=== PATIENT | male | born 1990 | race Caucasian/White ===

== ENCOUNTER 2019-06-07 17:46 | Emergency (ER) | payer MEDICAID ==
[~2019-06-07] VITALS: Ht 190.5 cm; Wt 94.0 kg
[2019-06-07 18:55] LABS: BASOPHILS % (AUTO) 0.5 % (0-1); EOSINOPHILS # (AUTO) 0.2 X10'3 (0-0.9); EOSINOPHILS % (AUTO) 2.7 % (0-6); HEMATOCRIT 44.8 % (42.0-52.0); HEMOGLOBIN 15.4 g/dl (14.0-17.9); LYMPHOCYTES # (AUTO) 1.7 X10'3 (1.1-4.8); MEAN CORPUSCULAR HEMOGLOBIN 30.7 PG (27.0-31.0); MEAN CORPUSCULAR HGB CONC 34.4 g/dL (33.0-36.5); MEAN CORPUSCULAR VOLUME 89.1 FL (78-98); MEAN PLATELET VOLUME 9.7 FL (7.4-10.4); MONOCYTES # (AUTO) 0.6 X10'3 (0-0.9); MONOCYTES % (AUTO) 8.3 % (2-12); NEUTROPHILS # (AUTO) 4.5 X10'3 (1.8-7.7); NEUTROPHILS % (AUTO) 64.5 % (42-75); PLATELET COUNT 201 X10'3 (140-440); RED BLOOD COUNT 5.02 X10'6 (4.70-6.10); RED CELL DISTRIBUTION WIDTH 13.4 % (11.5-14.5)
[2019-06-07 18:59] LABS: CLARITY,URINE CLEAR (Clear); COLOR,URINE YELLOW (Yellow); GLUCOSE, URINE NEGATIVE (Neg); KETONES,URINE NEGATIVE (Neg); LEUKOCYTE ESTERASE ,URINE NEGATIVE (Neg); NITRITES, URINE NEGATIVE (Neg); OCCULT BLOOD,URINE NEGATIVE (Neg); PROTEIN,URINE NEGATIVE (Neg); UROBILINOGEN,URINE 0.2 E.U/dL (0.2-1.0)
[2019-06-07 19:01] LABS: UA COLLECTION TYPE CLN CATCH MIDSTREAM
[2019-06-07 19:05] LABS: URINE AMPHETAMINE SCREEN NEGATIVE (Neg); URINE BARBITUATE SCREEN NEGATIVE (Neg); URINE BENZODIAZEPINES SCREEN NEGATIVE (Neg); URINE CANNABINOID SCREEN POSITIVE (Neg); URINE COCAINE SCREEN NEGATIVE (Neg); URINE METHADONE SCREEN NEGATIVE (Neg); URINE OPIATE SCREEN NEGATIVE (Neg); URINE PHENCYCLIDINE SCREEN NEGATIVE (Neg)
[2019-06-07] MEDS ORDERED: OLANZapine 2.5MG tablet PO ONE (19:05)
--- NOTE | 2019-06-07 19:10 | NUR ---
The patient is a 29 year old male who was brought in by his father for a mental health evaluation. He has been hitting himself in the head and giving himself black eyes. He stated "I had a seizure" What the patient described did not sound like a seizure but apparently he was hearing voices and began hitting himself. His father was at the bedside and stated that he has been having mental heatlh symptoms for a long time but has never had an evaluation by a psychiatrist or been in a psych hospital. He denies that he is having thoughts to harm himself or others.
[2019-06-07 19:14] LABS: ALANINE AMINOTRANSFERASE 19 U/L (12-78); ALBUMIN 3.9 G/DL (3.4-5.0); ALBUMIN/GLOBULIN RATIO 1.3 (1.1-1.5); ALKALINE PHOSPHATASE 64 IU/L (46-116); ANION GAP 7 (8-16); ASPARTATE AMINO TRANSFERASE 11 U/L (10-37); BILIRUBIN,TOTAL 0.3 MG/DL (0.1-1.0); BLOOD UREA NITROGEN 9 MG/DL (7-18); BUN/CREATININE RATIO 10.1 (5.4-32.0); CALCIUM 8.3 MG/DL (8.5-10.1); CHLORIDE 108 MMOL/L (99-107); CREATININE 0.89 MG/DL (0.60-1.10); GLUCOSE 101 MG/DL (70-104); POTASSIUM 3.8 MMOL/L (3.5-5.1); SODIUM 143 MMOL/L (135-145); TOTAL CARBON DIOXIDE 27.9 MMOL/L (24-32); TOTAL PROTEIN 6.8 G/DL (6.4-8.2); eGFR > 90 ML/MIN
[2019-06-07 19:22] LABS: ETHANOL < 0.010 GM/DL (0.0-0.010)
--- NOTE | 2019-06-07 19:35 | NUR ---
Packet faxed to [facility]
--- NOTE | 2019-06-07 20:16 | NUR ---
Per [facility] they are sending a clinician to evaluate the patient.
--- NOTE | 2019-06-07 20:33 | NUR ---
[facility] is here to evaluate the client.
--- NOTE | 2019-06-07 22:11 | NUR ---
The patient was seen by [facility] crisis staff and they felt he did not meet criteria for a 5150 hold. He discussed his assessment with Dr. Maier and Dr. Maier is going to keep the patient on the 1798 hold and have psychiatric services see the patient tomorrow. Per [facility] if it is felt the patient requires inpatient hospitalization then the patient's packet can be resubmitted and they will come back and re-assess tomorrow. The patient currently appears to be asleep
--- NOTE | 2019-06-07 22:14 | NUR ---
Patient's father, Pastor,
--- NOTE | 2019-06-07 23:31 | NUR ---
The patient appears to be sleeping
--- NOTE | 2019-06-08 01:12 | NUR ---
The patient appears to be sleeping
--- NOTE | 2019-06-08 04:22 | NUR ---
The patient appears to be sleeping
--- NOTE | 2019-06-08 05:30 | NUR ---
The patient appears to be sleeping
[2019-06-08 05:54] VITALS: BP 115/62
--- NOTE | 2019-06-08 07:13 | NUR ---
Pt is alseep on his side, no stress noted.
--- NOTE | 2019-06-08 07:34 | NUR ---
PT IS SLEEPING, RESPIRATIONS SPONTANEOUS, EVEN AND UNLABORED, NO S/S OF DISTRESS, DISCOMFORT OR AGITATION.
--- NOTE | 2019-06-08 08:19 | NUR ---
Pt woke up for breakfast with prompting, cooperative with staff and calm in demeanor. Pt advised that he has no plan for usp, clothes and food after being discharged. Pt went back to sleep after brief nursing assessment. No home medication.
--- NOTE | 2019-06-08 08:41 | NUR ---
Pt's father came to visit by bedside. Pt lay in bed with eyes closed, no stress noted.
--- NOTE | 2019-06-08 09:12 | NUR ---
Pt has a visit with [facility] staff for placement evaluation. Father is by bedside.
--- NOTE | 2019-06-08 11:04 | NUR ---
Pt has been laying in bed, father sits by bedside. No stress noted.
--- NOTE | 2019-06-08 13:00 | NUR ---
Pt has been awake in bed, father by side.
--- NOTE | 2019-06-08 13:47 | NUR ---
Dr. Santillan visited pt by bedside for assessment, father is proving collateral information.
--- NOTE | 2019-06-08 14:37 | NUR ---
DR NGUYEN GAVE PRESCRIPTION FOR PT, CALLED [facility]ON[facility]A SPOKE WITH MIGUEL PHARMACIST [id number], ZYPREXA 10 MG 1-2 HS MAY REPEAT X 1 AFTER 45 MIN #60, NO REFILLS, ALSO GAVE WRITTEN PRESCRIPTIONS FOR EEG, SPOKE WITH [facility] AND EEG TO BE DONE ON THURSDAY AT 0830, PT AND PT FATHER INFORMED OF MEDICATIONS CALLED INTO PHARMACY AND EEG APPOINTMENT ON THURSDAY.
== END 2019-06-08 15:07 | disposition home or self-care (01) ==
LOC: ER 17:46
DX: F29 Unspecified psychosis not due to a substance or known physiological condition (principal); R94.6 Abnormal results of thyroid function studies; R56.9 Unspecified convulsions
CPT/HCPCS: 36415; 70450; 80053; 80305; 80320; 81003; 84443; 85025; 99284

== ENCOUNTER 2019-06-10 08:35 | Outpatient (CLI) | payer MEDICAID ==
[2019-06-10] MEDS ORDERED: OLAN10TA3 PO (16:18)
== END 2019-06-10 23:59 | disposition home or self-care (01) ==
LOC: RAD 08:35
PROVIDERS: ATTEND Psychiatry & Neurology Psychiatry
DX: R56.9 Unspecified convulsions (principal)
CPT/HCPCS: 95816

== ENCOUNTER 2019-06-10 12:55 | Emergency (ER) | payer MEDICAID ==
[~2019-06-10] VITALS: Ht 190.5 cm; Wt 95.0 kg
--- NOTE | 2019-06-10 14:05 | NUR ---
Pt brought back to bed 26 with father. Pt is currently getting dressed in green scrubs and belongings being collected and logged.
[2019-06-10 14:43] LABS: CLARITY,URINE CLOUDY (Clear); COLOR,URINE YELLOW (Yellow); GLUCOSE, URINE NEGATIVE (Neg); KETONES,URINE NEGATIVE (Neg); LEUKOCYTE ESTERASE ,URINE NEGATIVE (Neg); NITRITES, URINE NEGATIVE (Neg); OCCULT BLOOD,URINE NEGATIVE (Neg); PROTEIN,URINE NEGATIVE (Neg); UROBILINOGEN,URINE 0.2 E.U/dL (0.2-1.0)
[2019-06-10 14:44] LABS: UA COLLECTION TYPE CLN CATCH MIDSTREAM; URINE AMPHETAMINE SCREEN NEGATIVE (Neg); URINE BARBITUATE SCREEN NEGATIVE (Neg); URINE BENZODIAZEPINES SCREEN NEGATIVE (Neg); URINE CANNABINOID SCREEN NEGATIVE (Neg); URINE COCAINE SCREEN NEGATIVE (Neg); URINE METHADONE SCREEN NEGATIVE (Neg); URINE OPIATE SCREEN NEGATIVE (Neg); URINE PHENCYCLIDINE SCREEN NEGATIVE (Neg)
[2019-06-10] MEDS ORDERED: hydrOXYzine 25 MG tablet PO PRN (14:45)
[2019-06-10 14:48] LABS: AMORPHOUS PHOSPHATES 3+; BACTERIA,URINE NONE SEEN /HPF (Neg); MUCUS STRANDS NONE SEEN /LPF (Neg); RBC,URINE NONE SEEN /HPF (0-2); SQUAMOUS EPITHELIAL CELL,UR NONE SEEN /LPF (FEW); WBC,URINE NONE SEEN /HPF (0-4)
[2019-06-10 15:42] LABS: BASOPHILS % (AUTO) 0.4 % (0-1); EOSINOPHILS # (AUTO) 0.1 X10'3 (0-0.9); EOSINOPHILS % (AUTO) 1.5 % (0-6); HEMATOCRIT 50.6 % (42.0-52.0); HEMOGLOBIN 17.2 g/dl (14.0-17.9); LYMPHOCYTES # (AUTO) 1.4 X10'3 (1.1-4.8); LYMPHOCYTES % (AUTO) 16.4 % (21-51); MEAN CORPUSCULAR HEMOGLOBIN 30.7 PG (27.0-31.0); MEAN CORPUSCULAR HGB CONC 34.1 g/dL (33.0-36.5); MEAN CORPUSCULAR VOLUME 90.1 FL (78-98); MEAN PLATELET VOLUME 9.4 FL (7.4-10.4); MONOCYTES # (AUTO) 0.6 X10'3 (0-0.9); MONOCYTES % (AUTO) 6.5 % (2-12); NEUTROPHILS # (AUTO) 6.5 X10'3 (1.8-7.7); NEUTROPHILS % (AUTO) 75.2 % (42-75); PLATELET COUNT 180 X10'3 (140-440); RED BLOOD COUNT 5.61 X10'6 (4.70-6.10); RED CELL DISTRIBUTION WIDTH 13.5 % (11.5-14.5); WHITE BLOOD COUNT 8.6 X10'3 (4.5-11.0)
[2019-06-10 15:53] LABS: ALANINE AMINOTRANSFERASE 17 U/L (12-78); ALBUMIN 4.5 G/DL (3.4-5.0); ALBUMIN/GLOBULIN RATIO 1.4 (1.1-1.5); ALKALINE PHOSPHATASE 67 IU/L (46-116); ANION GAP 5 (8-16); ASPARTATE AMINO TRANSFERASE 10 U/L (10-37); BILIRUBIN,TOTAL 0.2 MG/DL (0.1-1.0); BLOOD UREA NITROGEN 14 MG/DL (7-18); BUN/CREATININE RATIO 17.7 (5.4-32.0); CALCIUM 9.3 MG/DL (8.5-10.1); CHLORIDE 107 MMOL/L (99-107); CREATININE 0.79 MG/DL (0.60-1.10); ETHANOL < 0.010 GM/DL (0.0-0.010); GLUCOSE 77 MG/DL (70-104); POTASSIUM 4.1 MMOL/L (3.5-5.1); SODIUM 143 MMOL/L (135-145); TOTAL CARBON DIOXIDE 31.1 MMOL/L (24-32); TOTAL PROTEIN 7.8 G/DL (6.4-8.2); eGFR > 90 ML/MIN
--- NOTE | 2019-06-10 15:58 | NUR ---
pt states he was having voices in his head telling him to kill himself and he was going to take pills to do this. the pt's father states the that bruised eye on his right eye is because the pt when he goes into a more violent self harm time he hits himself and had hit himself in his right eye. pt's father also states that the pt had voiced to his father that he was being told also to hurt other people as well. pt does not have anything to say on this statement. Addendum: 06/10/19 at 1600 by ROSE pt not having anything to say means the pt made no comment after his father stated this and the pt does not personally voice that he was having HI.
[2019-06-10] MEDS ORDERED: OLAN10TA3 PO (16:18)
[2019-06-10] MEDS ORDERED: olanzapine 10mg tablet PO ONE ×2 (16:50→17:25)
[2019-06-10] MEDS ORDERED: olanzapine 10mg tablet PO SCH ×2 (16:50→21:00)
--- NOTE | 2019-06-10 17:50 | NUR ---
[facility] at bedside.
--- NOTE | 2019-06-10 18:30 | NUR ---
Assumed care of patient, pt. sitting up in bed eating dinner at this time. He appears calm and cooperative.
--- NOTE | 2019-06-10 18:55 | NUR ---
Pt's father is at bedside, they are waiting to talk to [facility] worker at this time.
--- NOTE | 2019-06-10 20:00 | NUR ---
1:1 completed at bedside with patient's father present per pt. consent, pt. is calm and cooperative. Pt. endorses ongoing command A/RASCON with a plan to overdose on pills. 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 Pt. also reports that he previously hit himself in the face after experiencing a seizure-like episode, however he has not participated in any self-harm behaviors since coming to the hospital. He denies taking any medicaion for seizures and results of recent EEG are WNL. When questioned by this chart writer regarding his A/RASCON, pt. stated, "There are many different voices and they are all female. They tell me that all I have to do is take the pills." Pt's father reported however that some of the voices the pt. hears are good, and will actually make him laugh, but some will make him angry and very verbally or physically agressive. Pt. denies any current H/I. Pt. does appear to be responding to internal stimuli at times, AEB by smiling and lauging to himself. Will continue to monitor.
--- NOTE | 2019-06-10 21:06 | NUR ---
Father: Pastor Page [phone]. Signed a medical release of information (with pt's consent) and would like to know if and where pt. transferred.
--- NOTE | 2019-06-10 22:30 | NUR ---
Pt. sleeping at this time, laying on his rt. side, appears to be resting comfortably. Will continue to monitor.
--- NOTE | 2019-06-10 23:00 | NUR ---
[facility] called to evaluate pt. for possible placement. Requested EEG results from earlier today, EEG results faxed. Placement Pending.
--- NOTE | 2019-06-11 00:40 | NUR ---
Pt. continues to sleep, laying on his rt. side at this time, rr even and unlabored.
--- NOTE | 2019-06-11 02:32 | NUR ---
Pt. continues to sleep, appears to be resting comfortably, laying on his left side at this time.
--- NOTE | 2019-06-11 04:32 | NUR ---
Pt. sleeping on his left side at this time, makes occassional body adjustments, rr even and unlabored.
--- NOTE | 2019-06-11 05:49 | NUR ---
Pt. continues to sleep at this time, will continue to monitor.
--- NOTE | 2019-06-11 06:00 | NUR ---
Patient is sleeping
--- NOTE | 2019-06-11 07:00 | NUR ---
Patient is sleeping
--- NOTE | 2019-06-11 08:00 | NUR ---
Patient is sleeping
--- NOTE | 2019-06-11 09:03 | NUR ---
Accepted to [facility] at [address]uldeep Chen
[2019-06-11 10:12] VITALS: BP 94/51
--- NOTE | 2019-06-11 10:15 | NUR ---
Patient picked up by [facility] to go to [facility]
== END 2019-06-11 10:16 ==
LOC: ER 12:56
DX: R45.851 Suicidal ideations (principal); R41.9 Unspecified symptoms and signs involving cognitive functions and awareness; F15.90 Other stimulant use, unspecified, uncomplicated; Z79.899 Other long term (current) drug therapy
CPT/HCPCS: 36415; 80053; 80305; 80320; 81001; 85025; 99285; Z7610

== ENCOUNTER 2019-07-26 18:55 | Emergency (ER) | payer MEDICAID ==
[~2019-07-26] VITALS: Ht 190.5 cm; Wt 96.4 kg
[~2019-07-26 18:55] MED LIST: OLAN10TA3 PO
[2019-07-26 20:58] LABS: CLARITY,URINE CLEAR (Clear); COLOR,URINE YELLOW (Yellow); GLUCOSE, URINE NEGATIVE (Neg); KETONES,URINE NEGATIVE (Neg); LEUKOCYTE ESTERASE ,URINE NEGATIVE (Neg); NITRITES, URINE NEGATIVE (Neg); OCCULT BLOOD,URINE NEGATIVE (Neg); PROTEIN,URINE NEGATIVE (Neg); UROBILINOGEN,URINE 0.2 E.U/dL (0.2-1.0)
[2019-07-26 20:59] LABS: UA COLLECTION TYPE NON-SPECIFIED
[2019-07-26 21:11] LABS: URINE AMPHETAMINE SCREEN NEGATIVE (Neg); URINE BARBITUATE SCREEN NEGATIVE (Neg); URINE BENZODIAZEPINES SCREEN NEGATIVE (Neg); URINE CANNABINOID SCREEN POSITIVE (Neg); URINE COCAINE SCREEN NEGATIVE (Neg); URINE METHADONE SCREEN NEGATIVE (Neg); URINE OPIATE SCREEN NEGATIVE (Neg); URINE PHENCYCLIDINE SCREEN NEGATIVE (Neg)
[2019-07-26 23:06] LABS: ALANINE AMINOTRANSFERASE 20 U/L (12-78); ALBUMIN 4.1 G/DL (3.4-5.0); ALBUMIN/GLOBULIN RATIO 1.3 (1.1-1.5); ALKALINE PHOSPHATASE 55 IU/L (46-116); ANION GAP 7 (8-16); ASPARTATE AMINO TRANSFERASE 21 U/L (10-37); BILIRUBIN,TOTAL 0.6 MG/DL (0.1-1.0); BLOOD UREA NITROGEN 13 MG/DL (7-18); BUN/CREATININE RATIO 15.5 (5.4-32.0); CALCIUM 9.2 MG/DL (8.5-10.1); CHLORIDE 105 MMOL/L (99-107); CREATININE 0.84 MG/DL (0.60-1.10); ETHANOL < 0.010 GM/DL (0.0-0.010); GLUCOSE 81 MG/DL (70-104); SODIUM 141 MMOL/L (135-145); TOTAL PROTEIN 7.2 G/DL (6.4-8.2); eGFR > 90 ML/MIN
[2019-07-26 23:07] LABS: ACETAMINOPHEN < 2.0 UG/ML (10-30); POTASSIUM 3.7 MMOL/L (3.5-5.1)
[2019-07-26 23:12] LABS: EOSINOPHILS # (AUTO) 0.2 X10'3 (0-0.9); MONOCYTES # (AUTO) 0.8 X10'3 (0-0.9); NEUTROPHILS # (AUTO) 5.2 X10'3 (1.8-7.7); WHITE BLOOD COUNT 8.2 X10'3 (4.5-11.0)
[2019-07-26 23:14] LABS: BASOPHILS % (AUTO) 0.6 % (0-1); EOSINOPHILS % (AUTO) 2.5 % (0-6); HEMATOCRIT 43.8 % (42.0-52.0); HEMOGLOBIN 15.6 g/dl (14.0-17.9); LYMPHOCYTES # (AUTO) 1.9 X10'3 (1.1-4.8); LYMPHOCYTES % (AUTO) 23.7 % (21-51); MEAN CORPUSCULAR HEMOGLOBIN 31.1 PG (27.0-31.0); MEAN CORPUSCULAR HGB CONC 35.6 g/dL (33.0-36.5); MEAN CORPUSCULAR VOLUME 87.5 FL (78-98); MEAN PLATELET VOLUME 8.8 FL (7.4-10.4); MONOCYTES % (AUTO) 9.7 % (2-12); NEUTROPHILS % (AUTO) 63.5 % (42-75); PLATELET COUNT 158 X10'3 (140-440); RED BLOOD COUNT 5.01 X10'6 (4.70-6.10); RED CELL DISTRIBUTION WIDTH 13.3 % (11.5-14.5)
--- NOTE | 2019-07-27 07:00 | NUR ---
pt came over from main er to overflow room 26 with rn
--- NOTE | 2019-07-27 07:17 | NUR ---
PACKET FAXED TO [facility]
--- NOTE | 2019-07-27 09:00 | NUR ---
pt is sleeping
--- NOTE | 2019-07-27 10:00 | NUR ---
pt is sleeping
--- NOTE | 2019-07-27 11:00 | NUR ---
pt is requesting anxiety medication
--- NOTE | 2019-07-27 12:00 | NUR ---
pt is sleeping
--- NOTE | 2019-07-27 13:00 | NUR ---
pt is eating lunch
[2019-07-27] MEDS: LORazepam 1 MG tablet PO PRN (13:55)
--- NOTE | 2019-07-27 14:00 | NUR ---
pt is sleeping
--- NOTE | 2019-07-27 15:00 | NUR ---
pt is sleeping
--- NOTE | 2019-07-27 16:05 | NUR ---
pt is resting. no concerns at this time
[2019-07-27] MEDS ORDERED: PROP40TA7 PO (16:42)
[2019-07-27] MEDS ORDERED: BENZ1TAB7 PO (16:42)
[2019-07-27] MEDS ORDERED: QUET200T PO (16:42)
[2019-07-27] MEDS ORDERED: QUET-1 PO (16:42)
--- NOTE | 2019-07-27 17:36 | NUR ---
father at bedside and gave great insight into patient. pt hears command voices to harmself and others. He states that when he hits himself in the face the voice are happy and then start laughing instead of being angry. pt and father reports that pt has "seizure sometimes". father states "something happens to the patient where the patient becomes unresponsive, barely able to stand, his eyes roll back and thats usually when the patient starts hitting himself in the face" pt can feel the seizures coming on. pt has been taking all his home meds and they are not working. please contact [facility] for md to consult regarding med adjustments. pt has been to shelter for "terroists threats, breaking and entering, drug charges" father states he believes the patient's mental health issues are not being helped and the patient is just bouncing back and forth and not getting any proper mental health help or consistency. [facility] at [facility] that given to patients drug hx is not a safe dc and is just making the sitution worse. pt can not stay with his parents cause there is a critical ill child at home that is actively dying and parents dont feel safe leaving the schizophrenic patient alone with the patient. fathers name is garcia [phone] he is very helpful and answer any questions.
--- NOTE | 2019-07-27 19:43 | NUR ---
The patient is resting on his bed. He was quiet and withdrawn during the evening assessment. His affect appeared to be blunted and he appeared distracted by internal stimuli. He reports constant voices over the past several days. He states that the voices have been telling him to walk out of the ER. He reports command hallucinations to harm himself and others. He stated most recently has been hitting himself but there is no apparent injury. He denies being depressed. He does state he is having anxiety.
[2019-07-27] MEDS: quetiapine 100mg tablet PO SCH ×2 (20:23→20:24)
[2019-07-27] MEDS: benztropine 1mg tablet PO SCH (20:24)
[2019-07-27] MEDS: propranolol 40mg tablet PO SCH (20:24)
--- NOTE | 2019-07-27 21:46 | NUR ---
The patient appears to be sleeping.
--- NOTE | 2019-07-27 23:43 | NUR ---
The patient appears to be sleeping.
--- NOTE | 2019-07-28 00:54 | NUR ---
The patient appears to be sleeping
--- NOTE | 2019-07-28 02:46 | NUR ---
The patient appears to be sleeping
--- NOTE | 2019-07-28 05:07 | NUR ---
Nurse to nurse with [facility]. The patient appears to be sleeping.
--- NOTE | 2019-07-28 07:00 | NUR ---
Patient is resting in bed peacefully at change of shift. No distress observed. He is seen ambulating self to the bathroom and is now resting in bed on his right side. Will continue to monitor.
[2019-07-28] MEDS: benztropine 1mg tablet PO SCH ×2 (08:07→19:58)
[2019-07-28] MEDS: propranolol 40mg tablet PO SCH ×3 (08:07→20:00)
[2019-07-28] MEDS: quetiapine 100mg tablet PO SCH ×4 (08:08→21:00)
--- NOTE | 2019-07-28 09:29 | NUR ---
Breaking primary RN, pt is supine in bed, eyes closed, no agitation observed, regular breathing observed
--- NOTE | 2019-07-28 11:30 | NUR ---
Patient is resting in bed peacefully at this time. No distress observed. Will continue to monitor
--- NOTE | 2019-07-28 13:30 | NUR ---
Patient is sleeping and does not want Addendum: 07/28/19 at 1757 by NAVID Patient refusing afternoon meds.
--- NOTE | 2019-07-28 15:05 | NUR ---
Patient is seen ambulating to bathroom. No distress observed.
--- NOTE | 2019-07-28 17:00 | NUR ---
Patient is resting in bed peacefully with his eyes open. He is pleasant and denies needs at this time.
--- NOTE | 2019-07-28 19:00 | NUR ---
Patient is mid fowlers in bed. His father is visiting at bedside sitting on a chair. The patient has eaten a full dinner. This patient describes anxiety. He is not comlaining of any S/I or H/I. This patient is responding to some sort of internal stimuli. He admits to voices at times. The father describes a possible seizure history at home which he blelieves the patient describes an aura. Father also describes the patient hitting himself during such seizure activity? The father tells this sql report writer that
[2019-07-28] MEDS: LORazepam 1 MG tablet PO PRN (20:00)
--- NOTE | 2019-07-28 20:30 | NUR ---
Patient is still responding to internal stimuli. Patient is compliant with medications. He is starting to rest now, mid fowlers position in bed.
--- NOTE | 2019-07-28 22:26 | NUR ---
Patient is sleeping quietly on his left side.
--- NOTE | 2019-07-29 02:11 | NUR ---
Patient is sleeping quietly on his left side.
--- NOTE | 2019-07-29 07:10 | NUR ---
PT RESTING ON RIGHT SIDE RR EQUAL AND UNLABORED
--- NOTE | 2019-07-29 08:45 | NUR ---
PT EATING BREAKFAST
[2019-07-29] MEDS: propranolol 40mg tablet PO SCH ×3 (09:28→19:59)
[2019-07-29] MEDS: LORazepam 1 MG tablet PO PRN (09:28)
[2019-07-29] MEDS: quetiapine 100mg tablet PO SCH ×4 (09:28→19:59)
[2019-07-29] MEDS: benztropine 1mg tablet PO SCH ×2 (09:28→19:59)
--- NOTE | 2019-07-29 09:30 | NUR ---
PT C/O ANXIETY, ATIVAN GIVEN
--- NOTE | 2019-07-29 10:50 | NUR ---
PT RESTING ON LEFT SIDE RR EQUAL AND UNLABORED
--- NOTE | 2019-07-29 12:16 | NUR ---
Breaking primary RN, pt supine in bed, regular breathing present, eyes closed, no agitation observed
--- NOTE | 2019-07-29 13:30 | NUR ---
PT RESTING ON BACK RR EQUAL AND UNLABORED.
--- NOTE | 2019-07-29 14:20 | NUR ---
PT UP TO BR [facility]ADY GATE
--- NOTE | 2019-07-29 15:33 | NUR ---
PT RESTING ON LEFT SIDE RR EQUAL AND UNLABORED.
--- NOTE | 2019-07-29 16:30 | NUR ---
PTS DAD AT VISITING. PTS DAD STATES HE IS WORRIED THAT PT WILL GET DCD [facility]. DAD CALLED BARRY FROM [facility] OVER TO SPEAK TO PT. BARRY ENCOURAGED PT TO WRITE DOWN HIS FEELINGS AND SHARE THEM WITH THE WORKER FROM [facility] TOMORROW. DAD ASSISTED PT WITH WRITTING DOWN HIS THOUGHTS. THE NOTES WERE PLACED IN PTS CHART UNDER THE "[facility] NOTES" TAB.
--- NOTE | 2019-07-29 17:49 | NUR ---
PT RESITNG ON BACK EYES CLOSED RR EQUAL AND UNLABORED.
[2019-07-30] MEDS: benztropine 1mg tablet PO SCH ×2 (08:37→20:24)
[2019-07-30] MEDS: quetiapine 100mg tablet PO SCH ×4 (08:37→20:24)
[2019-07-30] MEDS: propranolol 40mg tablet PO SCH ×3 (08:37→20:24)
--- NOTE | 2019-07-30 12:04 | NUR ---
Pt's family at bedside. Pt talking appropriately with his family.
--- NOTE | 2019-07-30 14:07 | NUR ---
Pt's family asking when the manager social will see the pt. Let them know that I am not sure, she is seeing the patient's in the order she needs to and that she is aware that they are here.
--- NOTE | 2019-07-30 14:37 | NUR ---
Pt's father's number is [phone], his name is Pastor. Pt has given permission for his father to have information.
--- NOTE | 2019-07-30 15:06 | NUR ---
Pt is resting quietly in bed. Respirations unlabored. NAD.
--- NOTE | 2019-07-30 15:31 | NUR ---
Pt is sleeping. Respirations unlabored. NAD
--- NOTE | 2019-07-30 15:48 | NUR ---
Adam from [facility] at pt's bedside.
--- NOTE | 2019-07-30 17:43 | NUR ---
Pt denies any needs at this time. Pt sitting quietly in his bed.
--- NOTE | 2019-07-30 18:30 | NUR ---
Pt sitting up in bed eating dinner. Pt denies any needs at this time.
--- NOTE | 2019-07-30 19:43 | NUR ---
Pt sleeping in bed. Respirations unlabored. NAD
--- NOTE | 2019-07-30 20:34 | NUR ---
Pt resting quietly in bed. Pt denies any needs at this time.
--- NOTE | 2019-07-30 21:39 | NUR ---
Pt is sleeping. Respirations unlabored. NAD
--- NOTE | 2019-07-30 22:31 | NUR ---
Pt is sleeping. Respirations unlabored. NAD
--- NOTE | 2019-07-30 23:32 | NUR ---
Pt is sleeping. Respirations unlabored. NAD
--- NOTE | 2019-07-31 00:35 | NUR ---
Pt is sleeping. Respirations unlabored. NAD
--- NOTE | 2019-07-31 01:32 | NUR ---
Pt is sleeping. Respirations unlabored. NAD
--- NOTE | 2019-07-31 03:26 | NUR ---
Pt is sleeping on his back. Respirations unlabored. NAD
--- NOTE | 2019-07-31 04:35 | NUR ---
Pt is sleeping on his left side. Respirations unlabored. NAD
--- NOTE | 2019-07-31 05:30 | NUR ---
Pt sleeping. Respirations unlabored. NAD
--- NOTE | 2019-07-31 07:00 | NUR ---
pt resting in bed no concerns at this time
[2019-07-31] MEDS: LORazepam 1 MG tablet PO PRN (07:23)
[2019-07-31] MEDS: benztropine 1mg tablet PO SCH ×2 (07:23→20:12)
[2019-07-31] MEDS: propranolol 40mg tablet PO SCH ×3 (07:23→20:22)
[2019-07-31] MEDS: quetiapine 100mg tablet PO SCH ×4 (07:23→20:13)
--- NOTE | 2019-07-31 08:00 | NUR ---
pt resting in bed no concerns at this time
--- NOTE | 2019-07-31 09:00 | NUR ---
pt resting in bed no concerns at this time
--- NOTE | 2019-07-31 10:00 | NUR ---
pt resting in bed no concerns at this time
--- NOTE | 2019-07-31 11:00 | NUR ---
kiya linares called to assess pt for poss medication changes
--- NOTE | 2019-07-31 12:00 | NUR ---
pt resting in bed no concerns at this time
--- NOTE | 2019-07-31 13:00 | NUR ---
milagros huertas came to overflow. pt reviewed with kiya. no new orders
--- NOTE | 2019-07-31 14:00 | NUR ---
pt resting in bed no concerns at this time
--- NOTE | 2019-07-31 16:00 | NUR ---
pt resting in bed no concerns at this time
--- NOTE | 2019-07-31 17:00 | NUR ---
pt resting in bed no concerns at this time
--- NOTE | 2019-07-31 20:22 | NUR ---
Cedric mckeon in [facility] - 07/31/19 at 2023 by DM [id number]
--- NOTE | 2019-07-31 20:22 | NUR ---
Cedric mckeon in [facility] - 07/31/19 at 2022 by [id number]
--- NOTE | 2019-07-31 20:23 | NUR ---
Inderal held 2nd HR of 57 and BP 107/69
--- NOTE | 2019-07-31 20:39 | NUR ---
The patient has been resting on his bed. He did receive two female visitors and the visit appeared to go well. The patient denies medication side effects. He stated that his appetite has been good. He reports feeling better than on admit. He denies being depressed. He statead that he is hearing voices commented on different aspects of his day. He stated that when he came in he was feeling suicidal but now reports that he is feeling better.
--- NOTE | 2019-07-31 22:30 | NUR ---
The patient appears to be sleeping
--- NOTE | 2019-07-31 23:41 | NUR ---
The patient appears to be sleeping
--- NOTE | 2019-08-01 05:26 | NUR ---
The patient appears to have slept well during the night and his HR this am was 55.
[2019-08-01] MEDS: propranolol 40mg tablet PO SCH ×3 (08:00→20:33)
[2019-08-01] MEDS: benztropine 1mg tablet PO SCH ×2 (08:02→20:32)
[2019-08-01] MEDS: quetiapine 100mg tablet PO SCH ×4 (08:02→20:33)
--- NOTE | 2019-08-01 15:52 | NUR ---
Pt.s father in to visit,requesting medical advocate to assist in obtaining conservator.Pts father shares that the pt has twice had housing placement arranged by his parole,but both times the voices in the pts head told him not to go,and to hurt himself,his father, and the people at the arranged housing.The pt colaborates this.The father states when the pts voices are active,the pt.will sit on his hands,also that the pt.believes that there "doubles of himself,his father and his girlfriend living in [place] that are all trying to poison him." The father states that he needs another 2nd documented diagnosis of "Gravely Disabled" to qualify the pt for conservator.The father shared that the pt. split his own lip,and blackened his own eye prior to the last attempted housing placement.Father made aware of resources available through [facility].
--- NOTE | 2019-08-01 20:00 | NUR ---
One to one with the patient to assess severity of disordered thought processes and self harm risk. When the patient was approached he was smiling as if was responding to internal stimuli. He reports constant auditory hallucinations but stated that the voices aren't always bothersome and that some times they makek him laugh. He reports voices telling him to hit someone and go to [facility] or hit himself. He has not acted on either of those command auditory hallucinations. He stated that he doesn't [facility] to [facility] back to [facility] because he felt the [facility] staff were poisoning his food so he is trying to get mental health treatment as to not have to go back there. He denies that he is suicidal. He reports anxiety over male peer walking by his bed.
[2019-08-01] MEDS: LORazepam 1 MG tablet PO PRN (20:33)
--- NOTE | 2019-08-01 21:43 | NUR ---
The patient appears to be sleeping.
--- NOTE | 2019-08-01 23:12 | NUR ---
The patient appears to be sleeping
--- NOTE | 2019-08-02 01:16 | NUR ---
The patient appears to be sleeping
--- NOTE | 2019-08-02 03:07 | NUR ---
The patient appears to be sleeping
--- NOTE | 2019-08-02 05:27 | NUR ---
The patient appears to be sleeping
[2019-08-02 05:47] VITALS: BP 118/73
--- NOTE | 2019-08-02 06:30 | NUR ---
pt is sleeping.
--- NOTE | 2019-08-02 07:00 | NUR ---
pt is sleeping. no concerns at this time
[2019-08-02] MEDS: quetiapine 100mg tablet PO SCH ×2 (07:54→13:21)
[2019-08-02] MEDS: benztropine 1mg tablet PO SCH (07:54)
[2019-08-02] MEDS: LORazepam 1 MG tablet PO PRN (07:54)
[2019-08-02] MEDS: propranolol 40mg tablet PO SCH ×2 (07:54→13:21)
--- NOTE | 2019-08-02 08:00 | NUR ---
pt is sitting in his room eating breakfast
--- NOTE | 2019-08-02 09:00 | NUR ---
pt is resting
--- NOTE | 2019-08-02 10:00 | NUR ---
spoke with from [facility]. is going to evalute the patient's meds. pt reports that he is still hearing voices. is going to consult with Shantanu De Santiago about increasing the patients seroquel.
--- NOTE | 2019-08-02 11:00 | NUR ---
pt is resting in his room. no concerns at this time
--- NOTE | 2019-08-02 12:00 | NUR ---
pt states he tolerates seroquel well. he has been started on it 6 weeks ago. pt came in on 500 mg po now increased to 600 mg. pt takes propranolol for the "nervous feelings" side effects of the seroquel. pt states the propranolol helps him the most but that he is at the max dose so his md put him on congentin. pt states invega made him feel "horrible" in the past and he doesnt want to take that again. also haldo has given him bad side effects in the past.
--- NOTE | 2019-08-02 12:40 | NUR ---
pt has thoughts of being controlled by the government that he does not speak openly about. pt appears to be be doing ok while he is sitting in his bed. he is very calm and pleasant. but if you ask the patient about the voices he hears his demeanor will change. gisel thinks he has been bugged by the goverment and that voices he hears are from the government. he hears 3 voices, 2 women and 1 man. he states the voices give him government commands to harm other people. he also believes most of us have a body double. gisel thinks this dad and girlfriend and himself are actually body doubles and they are not who they say they are
--- NOTE | 2019-08-02 13:57 | NUR ---
waiting for cbh to move the patient upstairs
--- NOTE | 2019-08-02 14:01 | NUR ---
pt is resting in his room. no concerns at this time
[2019-08-02] MEDS ORDERED: QUET200T PO (16:37)
[2019-08-02] MEDS ORDERED: QUET-1 PO (16:37)
[2019-08-02] MEDS ORDERED: BENZ1TAB7 PO (16:37)
[2019-08-02] MEDS ORDERED: PROP40TA72 PO (16:37)
== END 2019-08-02 14:25 | disposition home or self-care (01) ==
LOC: ER 18:56
DX: R45.851 Suicidal ideations (principal); F20.9 Schizophrenia, unspecified; Z79.899 Other long term (current) drug therapy
CPT/HCPCS: 36415; 80053; 80305; 80320; 80329; 81003; 85025; 99285

== ENCOUNTER 2019-08-02 12:03 | Inpatient (IN) | payer MEDICAID ==
[~2019-08-02] VITALS: Ht 182.9 cm; Wt 98.0 kg
[~2019-08-02 12:03] MED LIST changes: +BENZ1TAB7 PO; -OLAN10TA3 PO; +PROP40TA7 PO; +QUET-1 PO; +QUET200T PO
[2019-08-02 14:15] VITALS: BP 114/76
[2019-08-02] MEDS ORDERED: loperamide 2mg capsule PO PRN (14:40)
[2019-08-02] MEDS ORDERED: acetaminophen 325mg tablet PO PRN ×2 (14:40)
[2019-08-02] MEDS ORDERED: hydrOXYzine 25 MG tablet PO PRN (14:40)
[2019-08-02] MEDS ORDERED: magnesium hydroxide 30ml (MOM) UD suspension PO PRN (14:40)
[2019-08-02] MEDS ORDERED: mag hydrox/Alum hydrox/simeth 30ml oral suspension PO PRN (14:40)
[2019-08-02] MEDS ORDERED: PROP40TA72 PO (16:37)
[2019-08-02] MEDS ORDERED: QUET200T PO (16:37)
[2019-08-02] MEDS ORDERED: QUET-1 PO (16:37)
[2019-08-02] MEDS ORDERED: BENZ1TAB7 PO (16:37)
--- NOTE | 2019-08-02 18:03 | NUR ---
Nursing Admit/Progress Note: Legal hold: 5150 Client on involuntary status for DTS. Why are they here: Pt admitted to [place] [facility] on a 5150 for DTS at 1415. Patient is bourought up to the unit from ER overflow. Patient had reported that he was hitting himself in the face multiple times a day because the voices tell him to. He reported that he felt hopless that his symptoms will ever improve and was thinking about overdosing on his prescription medication. Patient was placed on a 5150hold for DTS. Assessment What has happened this shift: Patient amitted to the unit, alan search complete, 2 RN skin check complete, patient items inventoried and patient oriented to the unit. Patient states that he gets frustrated and will hit himself in the face. He states that sometimes the voices tell him to hurt himself, sometimes they tell him to drink water and sometimes they are funny and make him laugh. States he overdosed on heroin before but didnt . Patient states that he OD on pills about 7 weeks ago. Would like to learn how to cope better with change. S/I, H/I: S/I A/VH: AH Sleep:N/A ADL's:independant Group attendance: no evening groups Were Meds taken: N/A Any med S/E: None reported or observed. Mental Status Exam Appearance: clean and appropriate Eye contact: direct Behavior: friendly and cooperative Speech: soft tone, normal rate/rythm Mood: reports he feels hopeless Affect: restricted Thought process: linear Thought content: wellness Cognition: A/O X4 Insight: Poor Judgment: Poor Interventions PRN's used: None Therapeutic interventions: 1:1 therapeutic assessment, maintained safe therapeutic milieu, provided active listening with positive reinforcement, provided medication administration/education/monitoring as needed; Q15 safety checks. Restraints/seclusion/emergency medication: N/A Justification of Continued Inpatient Treatment: Continued therapeutic support and medication management needed to provide stabilization, prevent decompensation, improve coping mechanisms decreasing risk to patient and re-admittance.
[2019-08-02 19:21] VITALS: BP 114/63
[2019-08-02] MEDS: quetiapine 100mg tablet PO SCH (20:49)
[2019-08-02] MEDS: benztropine 1mg tablet PO SCH (20:49)
[2019-08-02] MEDS: propranolol 40mg tablet PO SCH (20:49)
[2019-08-02] MEDS ORDERED: quetiapine 100mg tablet PO SCH (21:00)
--- NOTE | 2019-08-02 23:52 | NUR ---
Nursing Progress Note: Legal hold: 5150 Ex: 08/05/19 @1415 Client on involuntary status for DTS. Report received from KRYSTLE Anderson with use of [facility]. Why are they here: Pt admitted to [place] [facility] on a 5150 for DTS at 1415. Patient is bourought up to the unit from ER overflow. Patient had reported that he was hitting himself in the face multiple times a day because the voices tell him to. He reported that he felt hopless that his symptoms will ever improve and was thinking about overdosing on his prescription medication. Patient was placed on a 5150hold for DTS. Assessment What has happened this shift: Pt was in his room in bed during shift change. States he is doing good. Pt remains isolative to his room, did not attend snack. Pt was cooperative during 1:1 physical assessment and took all his HS meds without any issues. He denies S/I, H/I and states that he feels a little bit of anxiety but he states its manageable. Pt endorses auditory hallucinations but denies visual hallucination. He states that the voices are constant throughout the day. When asked that the voices are saying, he states that it depends on what he is doing. sometimes theyre mean, sometimes theyre nice and sometimes theyre funny. They make me laugh. Pt did not make any other delusional statements and does not appear to be responding to internal stimuli. Although he responds to questions, pt does not engage in conversations. He goes to sleep after medication pass. S/I, H/I: Denies A/VH: AH, hears voices that are sometimes hostile and positive. Sleep: Currently sleeping, see sleep assessment for total hours ADL's: Independent Group attendance: cnc machinist 2nd shift, no groups Were Meds taken: Yes Any med S/E: None reported or observed. Mental Status Exam Appearance: clean and appropriate Eye contact: Good, direct Behavior: friendly and cooperative, isolative Speech: soft tone, normal rate/rythm Mood: Appears depressed Affect: Blunted Thought process: Disorganized Thought content: Hallucinations Cognition: A/O X4 Insight: Poor Judgment: Poor Interventions PRN's used: None Therapeutic interventions: 1:1 therapeutic assessment, maintained safe therapeutic milieu, provided active listening with positive reinforcement, provided medication administration/education/monitoring as needed; Q15 safety checks. Restraints/seclusion/emergency medication: N/A Justification of Continued Inpatient Treatment: Continued therapeutic support and medication management needed to provide stabilization, prevent decompensation, improve coping mechanisms decreasing risk to patient and re-admittance.
[2019-08-03 08:10] VITALS: BP 111/65
[2019-08-03] MEDS: benztropine 1mg tablet PO SCH (08:22)
[2019-08-03] MEDS: propranolol 40mg tablet PO SCH ×3 (08:22→22:02)
[2019-08-03] MEDS: quetiapine 100mg tablet PO SCH ×4 (08:22→22:02)
[2019-08-03 10:04] LABS: CHOL/HDL RATIO 3.7 (0.00-4.99); CHOLESTEROL 150 MG/DL (0-200); HDL CHOLESTEROL 41 MG/DL (35-60); LDL CHOLESTEROL 104 MG/DL (50-100); TRIGLYCERIDES 40 MG/DL (20-135)
[2019-08-03 10:06] LABS: HEMOGLOBIN A1C 5.2 % (4.5-6.2)
--- NOTE | 2019-08-03 15:33 | NUR ---
Nursing Progress Note: Legal hold: 5150 Client on involuntary status for DTS. Why are they here: Pt admitted to [facility] on a 5150 for DTS at 1415. Patient is bourought up to the unit from ER overflow. Patient had reported that he was hitting himself in the face multiple times a day because the voices tell him to. He reported that he felt hopeless that his symptoms will ever improve and was thinking about overdosing on his prescription medication. Patient was placed on a 5150hold for DTS. Assessment What has happened this shift: Patient is observed sleeping at change of shift. When he wakes he tells this RN that he slept well the night before and is feeling good today. He takes his medications without any issue and joins others in the group room for breakfast. Patient showers today and puts on clean clothing. He requests hygiene products and uses them. He is observed in appropriate interactions with peers and joins in activities. There are moments that he spends in his room resting. S/I, H/I: denies A/VH: AH Sleep: 8.75 ADL's:independant, showered Group attendance: yes Were Meds taken: yes Any med S/E: None reported or observed. Mental Status Exam Appearance: clean and appropriate Eye contact: direct Behavior: friendly and cooperative Speech: soft tone, normal rate/rythm Mood: reports he feels hopeless Affect: restricted Thought process: linear, goal directed Thought content: personal wellness Cognition: A/O X4 Insight: fair to good Judgment: fair Interventions PRN's used: None Therapeutic interventions: 1:1 therapeutic assessment, maintained safe therapeutic milieu, provided active listening with positive reinforcement, provided medication administration/education/monitoring as needed; Q15 safety checks. Restraints/seclusion/emergency medication: N/A Justification of Continued Inpatient Treatment: Continued therapeutic support and medication management needed to provide stabilization, prevent decompensation, improve coping mechanisms decreasing risk to patient and re-admittance.
[2019-08-03 20:00] VITALS: BP 104/55
[2019-08-03 22:00] VITALS: BP 115/70
--- NOTE | 2019-08-04 01:48 | NUR ---
Nursing Progress Note: Legal hold: 5150 Client on involuntary status for DTS Report received from nurse with use of SBAR: Michelet RN Why are they here: Pt admitted to [facility] on a 5150 for DTS from ER overflow. Patient had reported that he was hitting himself in the face multiple times a day over the past few days because the voices tell him to. He also reported that he felt hopeless that his symptoms will never improve, and was thinking about overdosing on his prescription medication. Pt. currently lives with his father who reports that he fears that the pt. will attempt to harm himself. Pt. has a hx of drug use, however upon admission toxicology screen was only positive for cannabinoids. Assessment What has happened this shift: Pt. laying in bed at the beginning of the shift sleeping, and continued to isolate here throughout the shift. Awoke pt. to administer HS medications, pt. presented as slightly irritable and mumbled something about wanting to sleep, however pt. cooperative with medications. Attempted to complete 1:1 assessment, however pt. non-verbal, occasionally nods "Yes" or "No." When questioned regarding S/I, pt. nods his head "No." No self-harm behaviors exhibited this shift. When questioned regarding A/H, pt. does not respond, he does not appear to be internally preoccupied. Pt. is reluctantly cooperative with physical assessment, and then immediately returns back to sleep. Will endorse to AM shift, and monitor. S/I, H/I: When questioned regarding S/I, pt. nods his head "No." A/VH: When questioned regarding A/H, pt. does not respond. Does not appear to be internally preoccupied. Sleep: Pt. remains in bed sleeping throughout the shift. ADL's: Requires encouragement and direction from staff Group attendance: Pt. does not attend HS snack Were meds taken: Yes Any med S/E: Pt. is very fatigued, will endorse to AM shift Mental Status Exam Appearance: Hair slightly disheveled from laying in bed, however appropriately dressed Eye contact: Poor Behavior: Asleep, fatigued, cooperative, isolative, and slightly irritable. Speech: Pt. is non-verbal, nods "Yes" or "No" Mood: Withdrawn and fatigued Affect: Flat Thought process: Poverty of Thought with possible thought blocking Thought Content: Unable to assess, pt. non-verbal Cognition: Alert to name Insight: Poor Judgment: Poor Interventions PRN's used: None Therapeutic interventions: Introduced self and attempted to establish rapport, maintained a safe and therapeutic environment, ensured contract for safety, provided clear and simple instructions, attempted to orient to reality, and maintained Q 15min safety checks. Restraints/seclusion/emergency medication: N/A Justification of Continued Inpatient Treatment: Pt. requires interruption of current crisis, medication adjustments, and a safe and therapeutic environment.
[2019-08-04 07:37] VITALS: BP 115/70
[2019-08-04] MEDS: quetiapine 100mg tablet PO SCH ×4 (08:05→21:03)
[2019-08-04] MEDS: propranolol 40mg tablet PO SCH ×3 (08:05→21:03)
--- NOTE | 2019-08-04 14:22 | NUR ---
NURSING PROGRESS NOTE Legal hold: 5150 Client on involuntary status for DTS. Why are they here: Pt admitted to [facility] for [facility] on a 5150 for DTS at 1415. Patient is brought up to the unit from ER overflow. Patient had reported that he was hitting himself in the face multiple times a day because the voices tell him to. He reported that he felt hopeless that his symptoms will ever improve and was thinking about overdosing on his prescription medication. Patient was placed on a 5150hold for DTS. Assessment What has happened this shift: At change of shift patient is lying in bed supine staring at the ceiling. He reports hearing voices but states his anxiety level is decreased since being on unit. He does say he is "scared" at times. States he knows the voices are not real but they "are real to me." He denies feeling suicidal at this time. He is medication compliant. Isolates to room (bed) mostly but is encouraged to attend groups which he does even going out on patio with the group. He is cooperative and polite. Responds well to reassurance. S/I, H/I: denies A/VH: AH Sleep: naps ADL's: self Group attendance: yes Were Meds taken: yes Any med S/E: None reported or observed. Mental Status Exam Appearance: clean and neat Eye contact: avoidant at times Behavior: isolative Speech: soft Mood: depressed/hopeless Affect: sad Thought process: linear Thought content: hearing voices worried about hurting himself Cognition: Alert Insight: fair Judgment: fair Interventions PRN's used: None Therapeutic interventions: 1:1 therapeutic assessment, maintained safe therapeutic milieu, provided active listening with positive reinforcement, provided medication administration/education/monitoring as needed; Q15 safety checks. Restraints/seclusion/emergency medication: N/A Justification of Continued Inpatient Treatment: Continued therapeutic support and medication management needed to provide stabilization, prevent decompensation, improve coping mechanisms decreasing risk to patient and re-admittance.
[2019-08-04 19:00] VITALS: BP 106/68
[2019-08-04 21:00] VITALS: BP 115/85
--- NOTE | 2019-08-05 00:38 | NUR ---
Nursing Progress Note: Legal hold: 5150 Client on involuntary status for DTS Report received from nurse with use of SBAR: LIDYA Cameron Why are they here: Pt admitted to [facility] on a 5150 for DTS from ER overflow. Patient had reported that he was hitting himself in the face multiple times a day over the past few days because the voices tell him to. He also reported that he felt hopeless that his symptoms will never improve, and was thinking about overdosing on his prescription medication. Pt. currently lives with his father who reports that he fears that the pt. will attempt to harm himself. Pt. has a hx of drug use, however upon admission toxicology screen was only positive for cannabinoids. Assessment What has happened this shift: Pt. again laying in bed at the beginning of the shift sleeping, he continues to isolate throughout the shift. Awoke pt. to administer HS medications, pt. presents as cooperative, fatigued, and guarded. He sits up in in bed and allows this rfp writer to complete a physical assessment. 1:1 completed at bedside, pt. is alert and oriented X4, however his speech is soft and slow and he sometimes takes a while to respond to questions or will stare off blankly. He denies any S/I, depression, or anxiety. However, pt. states, "My anxiety is okay now, but sometimes it gets really bad." No self-harm behaviors exhibited this shift, and pt. denies wanting to hurt himself while on the unit. When questioned regarding A/RASCON, pt. currently denies any, however admits that he sometimes does experience command A/RASCON. This rfp writer offered pt. an HS snack, and he accepted and complied with going into the Group Room in order to eat his snack. Pt. remained withdrawn and did not interact with others, and immediately following snack he returned back to bed. Appears to be resting comfortably, will continue to monitor. S/I, H/I: When questioned regarding S/I, pt. nods his head "No." A/VH: When questioned regarding A/H, pt. does not respond. Does not appear to be internally preoccupied. Sleep: Pt. remains in bed sleeping throughout the shift. ADL's: Requires encouragement and direction from staff Group attendance: Pt. does not attend HS snack Were meds taken: Yes Any med S/E: Pt. is very fatigued, will endorse to AM shift Mental Status Exam Appearance: Neat and appropriately dressed Eye contact: Fair, pt. will sometimes stare off blankly Behavior: Cooperative, fatigued, isolative, and guarded Speech: Speech is soft and slow and he sometimes takes a while to respond to questions or will stare off blankly Mood: Guarded and fatigued Affect: Flat Thought process: Poverty of Thought with possible thought blocking Thought Content: Command A/RASCON at times Cognition: A&O X4 Insight: Poor Judgment: Poor Interventions PRN's used: None Therapeutic interventions: Maintained a safe and therapeutic environment, ensured contract for safety, provided clear and simple instructions, attempted to orient to reality, provided active listening and positive encouragement, encouraged independent performance of ADLs, and maintained Q 15min safety checks. Restraints/seclusion/emergency medication: N/A Justification of Continued Inpatient Treatment: KRISTEN Thakkar, pt. remains a DTS r/t ongoing A/RASCON. He requires further stabilization, medication adjustments, and a safe and therapeutic environment.
[2019-08-05 08:00] VITALS: BP 113/70
[2019-08-05] MEDS: quetiapine 100mg tablet PO SCH ×4 (08:16→20:54)
[2019-08-05] MEDS: propranolol 40mg tablet PO SCH ×3 (08:16→20:53)
--- NOTE | 2019-08-05 14:57 | NUR ---
NURSING PROGRESS NOTE Legal hold: 5150 Client on involuntary status for DTS. Why are they here: Pt admitted to [facility] on a 5150 for DTS at 1415. Patient is brought up to the unit from ER overflow. Patient had reported that he was hitting himself in the face multiple times a day because the voices tell him to. He reported that he felt hopeless that his symptoms will ever improve and was thinking about overdosing on his prescription medication. Patient was placed on a 5150hold for DTS. Assessment What has happened this shift: Up for meals and snacks. Goes out on patio with the group. Otherwise isolates self to room. He denies suicidal thoughts and is not having any command hallucinations at this time. He is slow to answer questions and stares off blankly at times. He is cooperative and polite. Medication compliant. States he wants to "get well." S/I, H/I: denies A/VH: denies Sleep: naps ADL's: self Group attendance: yes Were Meds taken: yes Any med S/E: None reported or observed. Mental Status Exam Appearance: clean and neat Eye contact: avoidant at times Behavior: isolative at times Speech: soft Mood: depressed Affect: brighter today Thought process: linear Thought content: wanting to get well Cognition: Alert Insight: fair Judgment: fair Interventions PRN's used: None Therapeutic interventions: 1:1 therapeutic assessment, maintained safe therapeutic milieu, provided active listening with positive reinforcement, provided medication administration/education/monitoring as needed; Q15 safety checks. Restraints/seclusion/emergency medication: N/A Justification of Continued Inpatient Treatment: Continued therapeutic support and medication management needed to provide stabilization, prevent decompensation, improve coping mechanisms decreasing risk to patient and re-admittance.
[2019-08-05 19:00] VITALS: BP 111/65
[2019-08-05 20:50] VITALS: BP 130/80
--- NOTE | 2019-08-06 00:17 | NUR ---
Nursing Progress Note: Legal hold: 5250 Client on involuntary status for DTS Report received from nurse with use of SBAR: LIDYA Cameron Why are they here: Pt admitted to [facility] for [facility] on a 5150 for DTS from ER overflow. Patient had reported that he was hitting himself in the face multiple times a day over the past few days because the voices tell him to. He also reported that he felt hopeless that his symptoms will never improve, and was thinking about overdosing on his prescription medication. Pt. currently lives with his father who reports that he fears that the pt. will attempt to harm himself. Pt. has a hx of drug use, however upon admission toxicology screen was only positive for cannabinoids. Assessment What has happened this shift: Pt. asleep in bed at the beginning of the shift sleeping, he remained here throughout the shift. Pt's father attempted to visit, however pt. refused the visit. Awoke pt. to administer HS medications, pt. continues to present as cooperative, fatigued, and guarded. His speech remains soft and difficult to understand at times, and pt. is slow to respond to questions and will at times stare blankly. Attempted to complete 1:1 at bedside, he continues to deny any S/I or depression. However, pt. reports ongoing command A/RASCON. This selling underwriter questioned pt. regarding the content of his A/RASCON, pt. stated, "They tell me to sit up, move, or hit myself." No self-harm behaviors exhibited this shift, and pt. reports he is able to ignore the A/RASOCN. When questioned regarding anxiety, pt. states, "I feel better on the Seroquel, the voices are better." Pt. is cooperative with physical assessment, and then immediately returns back to sleep. Appears to be resting comfortably, will continue to monitor. S/I, H/I: Denies A/VH: Ongoing command A/RASCON Sleep: Pt. remains in bed sleeping throughout the shift, reports he has been sleeping well. ADL's: Requires encouragement and direction from staff Group attendance: Per report from AM shift, pt. did attend group on the patio today Were meds taken: Yes Any med S/E: Pt. remains fatigued, will endorse to AM shift Mental Status Exam Appearance: Slightly disheveled r/t laying in bed, however appropriately dressed Eye contact: Fair, pt. will sometimes stare off blankly Behavior: Cooperative, fatigued, isolative, and guarded Speech: His speech remains soft and difficult to understand at times, and pt. is slow to respond to questions Mood: Guarded and fatigued Affect: Flat Thought process: Poverty of Thought with possible thought blocking Thought Content: Preoccupation with anxiety r/t command A/RASCON Cognition: A&O X4 Insight: Poor Judgment: Poor Interventions PRN's used: None Therapeutic interventions: Maintained a safe and therapeutic environment, ensured contract for safety, provided clear and simple instructions, attempted to orient to reality, provided active listening and positive encouragement, encouraged independent performance of ADLs, and maintained Q 15min safety checks. Restraints/seclusion/emergency medication: N/A Justification of Continued Inpatient Treatment: KRISTEN Thakkar, pt. remains a DTS r/t ongoing A/RASCON. He requires further stabilization, medication adjustments, and a safe and therapeutic environment.
[2019-08-06 07:46] VITALS: BP 109/57
[2019-08-06] MEDS: quetiapine 100mg tablet PO SCH ×4 (08:01→20:57)
[2019-08-06] MEDS: propranolol 40mg tablet PO SCH ×3 (08:01→20:57)
[2019-08-06 08:05] VITALS: BP 118/81
[2019-08-06 08:52] VITALS: BP 109/57
--- NOTE | 2019-08-06 16:09 | NUR ---
NURSING PROGRESS NOTE Legal hold: 5150 Client on involuntary status for DTS. Received report from LIDYA Baugh with use of SBAR Why are they here: Pt admitted to [facility] on a 5150 for DTS at 1415. Patient is brought up to the unit from ER overflow. Patient had reported that he was hitting himself in the face multiple times a day because the voices tell him to. He reported that he felt hopeless that his symptoms will ever improve and was thinking about overdosing on his prescription medication. Patient was placed on a 5150hold for DTS. Assessment What has happened this shift: Up to meals and snacks. More visible on unit today, walking some in hallway and watching some TV with others. Still isolates to bed. Reports feeling "better." Denies any suicidal or homicidal thoughts. States the voices he hears are "only once in awhile now." Appears to be responding to internal stimuli, while lying on bed is smiling and mumbling to himself. He stated that the voices told him not to eat the food on his try, but he just ignored it and ate the food anyway. He stated he was proud of himself for defying the voices. Encouraged to continue to realize the voices aren't real and he does not have to do what they say. S/I, H/I: denies A/VH: some Sleep: naps ADL's: self Group attendance: yes Were Meds taken: yes Any med S/E: None reported or observed. Mental Status Exam Appearance: clean and neat Eye contact: direct Behavior: isolative at times, cooperative Speech: soft Mood: depressed Affect: brighter today Thought process: linear Thought content: wanting to get well and resisting voices Cognition: Alert Insight: fair Judgment: fair Interventions PRN's used: None Therapeutic interventions: 1:1 therapeutic assessment, maintained safe therapeutic milieu, provided active listening with positive reinforcement, provided medication administration/education/monitoring as needed; Q15 safety checks. Restraints/seclusion/emergency medication: N/A Justification of Continued Inpatient Treatment: Continued therapeutic support and medication management needed to provide stabilization, prevent decompensation, improve coping mechanisms decreasing risk to patient and re-admittance.
[2019-08-06 20:00] VITALS: BP 110/62
--- NOTE | 2019-08-07 00:21 | NUR ---
NURSING PROGRESS NOTE Legal hold: 5150 Client on involuntary status for DTS. Received report from KRYSTLE Cameron with use of SBAR Why are they here: Pt admitted to [facility] on a 5150 for DTS at 1415. Patient is brought up to the unit from ER overflow. Patient had reported that he was hitting himself in the face multiple times a day because the voices tell him to. He reported that he felt hopeless that his symptoms will ever improve and was thinking about overdosing on his prescription medication. Patient was placed on a 5150 hold for DTS. Assessment What has happened this shift: Pt lying in bed at start of shift. Pt said he had been up to groups and meals today. Agreed to come to group room for snack but when the time came declined. Spent the entire shift in his room. Says he is feeling good denies depression or SI but says "I can tell it is time for my medication." Educated on medications, pleasant and cooperative with care. S/I, H/I: denies A/VH: some Sleep: Asleep at this time ADL's: self Group attendance: no Were Meds taken: yes Any med S/E: None reported or observed. Mental Status Exam Appearance: clean and neat Eye contact: direct Behavior: isolative at times, cooperative Speech: soft Mood: depressed Affect: brighter today Thought process: linear Thought content: wanting to get well and resisting voices Cognition: Alert Insight: fair Judgment: fair Interventions PRN's used: None Therapeutic interventions: 1:1 therapeutic assessment, maintained safe therapeutic milieu, provided active listening with positive reinforcement, provided medication administration/education/monitoring as needed; Q15 safety checks. Restraints/seclusion/emergency medication: N/A Justification of Continued Inpatient Treatment: Continued therapeutic support and medication management needed to provide stabilization, prevent decompensation, improve coping mechanisms decreasing risk to patient and re-admittance.
[2019-08-07 07:30] VITALS: BP 117/68
[2019-08-07] MEDS: propranolol 40mg tablet PO SCH ×3 (07:48→21:30)
[2019-08-07] MEDS: quetiapine 100mg tablet PO SCH ×4 (07:49→21:30)
--- NOTE | 2019-08-07 13:30 | NUR ---
Initial: Pt admit w/ psychosis and auditory hallucinations encouraging self-harm per MD note. PO 75-100% avg regular diet meeting needs. LBM 08/05. No nutrition concerns at this time. Will continue to monitor. Rec: 1. continue regular diet 2. bowel care as needed 3. wt per rx Addendum: 08/07/19 at [address] Amended: Links added.
--- NOTE | 2019-08-07 15:16 | NUR ---
NURSING PROGRESS NOTE: Geoff Legal hold: 5250 expires 08/18 @ 1415 Hearing 08/07 Client on involuntary status for DTS. Received report from LIDYA Amador with use of SBAR Why they are here: Pt admitted to [facility] for [facility] on a 5150 for DTS at 1415. Patient is brought up to the unit from ER overflow. Patient had reported that he was hitting himself in the face multiple times a day because the voices tell him to. He reported that he felt hopeless that his symptoms will never improve and was thinking about overdosing on his prescription medication. Patient was placed on a 5150 hold for DTS. Assessment What has happened this shift? Patient was awake, bed was made and had completed ADLs. When asked about the voices, he states that it was still early and he hadnt heard any. When inquiring about his SI, he states he doesnt have a plan and thoughts of hurting himself come and go. Following lunch patient states the voices are always there just sometimes more demanding than others. Voices are negative and direct patient to hurt himself. Remained in his room except for meals and snacks. S/I, H/I: intermittently A/VH: they are always there Sleep: 9.5 ADL's: self Group attendance: no Were Meds taken: Compliant with medications Any med S/E: No Mental Status Exam Appearance: well groomed, wearing green scrubs Eye contact: fair Behavior: calm, isolative, cooperative Speech: Soft spoken, regular rate and rhythm Mood: guarded Affect: Congruent with mood Thought process: linear Thought content: getting better, ignoring voices Cognition: Alert & Oriented X 4 Insight: fair Judgment: fair Interventions PRN's used: None Therapeutic interventions: 1:1 therapeutic assessment, maintained safe therapeutic milieu, provided active listening with positive reinforcement, provided medication administration/education/monitoring as needed; Q15 safety checks. Restraints/seclusion/emergency medication: N/A Justification of Continued Inpatient Treatment: Continued therapeutic support and medication management needed to provide stabilization, prevent decompensation, and improve coping mechanisms decreasing risk to patient and re-admittance.
[2019-08-07 19:26] LABS: BASOPHILS % (AUTO) 0.5 % (0-1); EOSINOPHILS # (AUTO) 0.2 X10'3 (0-0.9); EOSINOPHILS % (AUTO) 2.6 % (0-6); HEMATOCRIT 45.7 % (42.0-52.0); HEMOGLOBIN 15.8 g/dl (14.0-17.9); LYMPHOCYTES # (AUTO) 1.6 X10'3 (1.1-4.8); MEAN CORPUSCULAR HEMOGLOBIN 30.6 PG (27.0-31.0); MEAN CORPUSCULAR HGB CONC 34.7 g/dL (33.0-36.5); MEAN CORPUSCULAR VOLUME 88.2 FL (78-98); MONOCYTES # (AUTO) 0.6 X10'3 (0-0.9); MONOCYTES % (AUTO) 9.2 % (2-12); NEUTROPHILS # (AUTO) 3.7 X10'3 (1.8-7.7); NEUTROPHILS % (AUTO) 60.7 % (42-75); PLATELET COUNT 182 X10'3 (140-440); RED BLOOD COUNT 5.18 X10'6 (4.70-6.10); RED CELL DISTRIBUTION WIDTH 13.5 % (11.5-14.5); WHITE BLOOD COUNT 6.1 X10'3 (4.5-11.0)
[2019-08-07] MEDS: carBAMazepine Ext. Release 200 MG TAB.ER.12H PO SCH (20:00)
[2019-08-07 20:57] VITALS: BP 106/59
--- NOTE | 2019-08-08 00:41 | NUR ---
NURSING PROGRESS NOTE: Legal hold: 5250 expires 08/18 @ 1415 Hearing 08/07 Client on involuntary status for DTS. Received report from KRYSTLE Cameron with use of SBAR Why they are here: Pt admitted to [place] [facility] on a 5150 for DTS at 1415. Patient is brought up to the unit from ER overflow. Patient had reported that he was hitting himself in the face multiple times a day because the voices tell him to. He reported that he felt hopeless that his symptoms will never improve and was thinking about overdosing on his prescription medication. Patient was placed on a 5150 hold for DTS. Assessment What has happened this shift? In bed at start of shift. Isolated in room all shift. Did not come to group room for snack. Pt Says he hears voices but his medications make it easier for him to ignore. The voices told him not to watch a movie but he watched it anyway. Pt pleasant and cooperative with care S/I, H/I: intermittently A/VH: voices are always there Sleep: asleep at this time ADL's: independant Group attendance: no Were Meds taken: Compliant with medications Any med S/E: No Mental Status Exam Appearance: well groomed, wearing green scrubs Eye contact: fair Behavior: calm, isolative, cooperative Speech: Soft spoken, regular rate and rhythm Mood: guarded Affect: Congruent with mood Thought process: linear Thought content: getting better, ignoring voices Cognition: Alert & Oriented X 4 Insight: fair Judgment: fair Interventions PRN's used: None Therapeutic interventions: 1:1 therapeutic assessment, maintained safe therapeutic milieu, provided active listening with positive reinforcement, provided medication administration/education/monitoring as needed; Q15 safety checks. Restraints/seclusion/emergency medication: N/A Justification of Continued Inpatient Treatment: Continued therapeutic support and medication management needed to provide stabilization, prevent decompensation, and improve coping mechanisms decreasing risk to patient and re-admittance.
[2019-08-08] MEDS: carBAMazepine Ext. Release 200 MG TAB.ER.12H PO SCH ×2 (07:37→20:28)
[2019-08-08] MEDS: quetiapine 100mg tablet PO SCH ×4 (07:38→20:29)
[2019-08-08] MEDS: propranolol 40mg tablet PO SCH ×3 (07:38→20:28)
[2019-08-08 08:00] VITALS: BP 110/72
--- NOTE | 2019-08-08 16:58 | NUR ---
NURSING PROGRESS NOTE: Legal hold: 5270 Client on involuntary status for DTS Report received from LIDYA Amador. Why they are here: Patient presented to [facility] [place] police. Patient reports hearing voices telling him to kill himself with a knife. Pt is feels depressed and hopeless stating Nobody care about me. He states he has been off [place] for the last 7 days (as of 06/28/19), but has been taking all other medications. Pts girlfriend called EMS after noticing a worsening decline, pt. went voluntarily to the hospital with police. Pt has at least 1 SA in 2019. Patient reports two sisters have committed suicide. Assessment What has happened this shift? Patient up and walking the unit at change of shift. He reports having a headache and requests Tylenol. All medications administered to patient without issue. Patient refuses suppository stating that its exist only, Im not taking that and I already told the doctor that I would not take it. Patient states that he had a small BM. Patient states with tears in his eyes I just want to go home, Im ready to go. Patient states that his discharge is planned for tomorrow. S/I, H/I: Intermittent SI A/VH: decreased A/H. Sleep: 6.75 hours NOC and rested during the day ADL's: Independent Group attendance: no Were meds taken? Yes Any med S/E: None Mental Status Exam Appearance: wearing street clothes, head has been shaved Eye contact: direct Behavior: cooperative, withdrawn Speech: soft, normal rate, rhythm Mood: gloomy Affect: Congruent with mood Thought process: Linear Thought Content: discharge Cognition: A & O X 4 Insight: Fair Judgment: fair Interventions PRN's used: Tylenol for headache Therapeutic interventions: 1:1 therapeutic assessment, maintained safe therapeutic milieu, provided active listening with positive reinforcement, provided medication administration/education/monitoring as needed; Q15 safety checks. Restraints/seclusion/emergency medication: N/A Justification of Continued Inpatient Treatment: Continued therapeutic support and medication management needed to provide stabilization, prevent decompensation, and improve coping mechanisms decreasing risk to patient and re-admittance. Addendum: 08/08/19 at 1705 by Princess Cullen RN Disregard note, wrong patient.
--- NOTE | 2019-08-08 17:06 | NUR ---
Nursing Progress Note: Legal hold: 5250 Client on involuntary status for DTS. Received report from LIDYA Amador. Why are they here: Pt admitted to [place] [facility] on a 5150 for DTS at 1415. Patient is brought up to the unit from ER overflow. Patient had reported that he was hitting himself in the face multiple times a day because the voices tell him to. He reported that he felt hopeless that his symptoms will ever improve and was thinking about overdosing on his prescription medication. Patient was placed on a 5150hold for DTS. Assessment Patient is observed sleeping at change of shift. He wakes for breakfast, eats and then requests to take a shower. Patient is calm and states that he is doing well. Medication education provided r/t new meds prescribed, patient denies having any questions. He takes his medications without issue. Patient continues to report improvement in his A/H. He denies any needs. S/I, H/I: denies A/VH: AH have decreased Sleep: 8 ADL's:independant, showered Group attendance: yes Were Meds taken: yes Any med S/E: None reported or observed. Mental Status Exam Appearance: clean and appropriate Eye contact: direct Behavior: friendly and cooperative Speech: soft tone, normal rate/rythm Mood: good Affect: restricted Thought process: linear, goal directed Thought content: personal wellness Cognition: A/O X4 Insight: fair to good Judgment: fair Interventions PRN's used: None Therapeutic interventions: 1:1 therapeutic assessment, maintained safe therapeutic milieu, provided active listening with positive reinforcement, provided medication administration/education/monitoring as needed; Q15 safety checks. Restraints/seclusion/emergency medication: N/A Justification of Continued Inpatient Treatment: Continued therapeutic support and medication management needed to provide stabilization, prevent decompensation, improve coping mechanisms decreasing risk to patient and re-admittance.
[2019-08-08 19:39] VITALS: BP 108/60
--- NOTE | 2019-08-09 00:14 | NUR ---
Nursing Progress Note: Legal hold: 5250 Client on involuntary status for DTS Report received from nurse with use of SBAR: KRYSTLE Tafoya Why are they here: Pt admitted to [place] [facility] on a 5150 for DTS from ER overflow. Patient had reported that he was hitting himself in the face multiple times a day over the past few days because the voices tell him to. He also reported that he felt hopeless that his symptoms will never improve, and was thinking about overdosing on his prescription medication. Pt. currently lives with his father who reports that he fears that the pt. will attempt to harm himself. Pt. has a hx of drug use, however upon admission toxicology screen was only positive for cannabinoids. Assessment What has happened this shift: Pt was in his bed resting during shift change. States he is doing good. Pt was cooperative during 1:1 physical assessment and took all his HS meds without any issues. He denies any S/I, H/I, and when asked about hallucinations, he states I am. Well actually not right now. Im okay. He does admit to A/H earlier during the day but does not want to elaborate on what they were saying. He was not observed responding to internal stimuli. When questioned about anxiety, pt denies and states he feels fine. Pt states that he didnt really do anything today because there were no groups so he just came out for his meals. Encouraged pt to come out for snack, which he did. Pt is pleasant but engages minimally. Pt returned to bed after this and slept without any issues. S/I, H/I: Denies A/VH: Denies Sleep: Currently sleeping, see sleep assessment for total hours ADL's: Independent, does require some prompting from staff Group attendance: shift leader, not groups. Did attend snack with some encouragement. Were meds taken: Yes Any med S/E: None reported or observed. Mental Status Exam Appearance: Appropriately dressed, wearing green unit scrubs. Eye contact: Fair, pt. will sometimes stare off blankly. Behavior: Cooperative, fatigued, isolative, and guarded. Speech: His speech remains soft, will take some time to respond to questions at times. Mood: "I'm good." pt appears fatigued. Affect: Flat Thought process: Poverty of Thought Thought Content: Getting a snack Cognition: A&O X4 Insight: Poor Judgment: Poor Interventions PRN's used: None Therapeutic interventions: Maintained a safe and therapeutic environment, ensured contract for safety, provided clear and simple instructions, attempted to orient to reality, provided active listening and positive encouragement, encouraged independent performance of ADLs, and maintained Q 15min safety checks. Restraints/seclusion/emergency medication: N/A Justification of Continued Inpatient Treatment: KRISTEN Thakkar, pt. remains a DTS r/t ongoing A/RASCON. He requires further stabilization, medication adjustments, and a safe and therapeutic environment.
[2019-08-09 07:00] VITALS: BP 110/58
[2019-08-09] MEDS: quetiapine 100mg tablet PO SCH ×4 (08:30→21:10)
[2019-08-09] MEDS: propranolol 40mg tablet PO SCH ×3 (08:30→21:10)
[2019-08-09] MEDS: carBAMazepine Ext. Release 200 MG TAB.ER.12H PO SCH ×2 (08:30→21:09)
--- NOTE | 2019-08-09 16:44 | NUR ---
Nursing Progress Note: Legal hold: 5250 Client on involuntary status for DTS. Received report from LIDYA Arredondo, using SBAR Why are they here: Pt admitted to [place] [facility] on a 5150 for DTS at 1415. Patient is brought up to the unit from ER overflow. Patient had reported that he was hitting himself in the face multiple times a day because the voices tell him to. He reported that he felt hopeless that his symptoms will ever improve and was thinking about overdosing on his prescription medication. Patient was placed on a 5150hold for DTS. Assessment What happened this shift: Received pt sleeping in bed. Patient reports that he has command auditory hallucinations. He states that when he is out on the streets, he feels paranoid much of the time, and the voices are always telling him that he is unsafe, and he has to leave where he is staying because he believes that a nursing home gang is after him. Patient reports that he still has some paranoia. He states that if he doesn't do what the voices say, then they will punish him and make him hit his head, so he tries to obey them. He stated that "they let me watch a movie today". Pt. states that he was denied by [facility], and will probably temporarily stay with his dad. Patient denies any other stressors at this time. S/I, H/I: denies A/VH: + CAH Sleep: 9.0 hrs NOC, napped x 1. ADL's:independant, showered Group attendance: Movie group. Were Meds taken: yes Any med S/E: None reported or observed. Mental Status Exam Appearance: Clean and neat in unit attire. Eye contact: direct Behavior: Calm and cooperative. Speech: soft tone, normal rate/rythm Mood: "Good". Affect: Blunted. Thought process: linear, goal directed Thought content: Improvement with medications, discharge plans. Cognition: A/O X4 Insight: good Judgment: fair Interventions PRN's used: None Therapeutic interventions: 1:1 therapeutic assessment, maintained safe therapeutic milieu, provided active listening with positive reinforcement, provided medication administration/education/monitoring as needed; Q15 safety checks. Restraints/seclusion/emergency medication: N/A Justification of Continued Inpatient Treatment: Continued therapeutic support and medication management needed to provide stabilization, prevent decompensation, improve coping mechanisms decreasing risk to patient and re-admittance.
[2019-08-09 20:07] VITALS: BP 96/54
--- NOTE | 2019-08-09 23:26 | NUR ---
Nursing Progress Note: Legal hold: 5250 Client on involuntary status for DTS Report received from nurse with use of SBAR: KRYSTLE Cameron Why are they here: Pt admitted to [place] for [facility] on a 5150 for DTS from ER overflow. Patient had reported that he was hitting himself in the face multiple times a day over the past few days because the voices tell him to. He also reported that he felt hopeless that his symptoms will never improve, and was thinking about overdosing on his prescription medication. Pt. currently lives with his father who reports that he fears that the pt. will attempt to harm himself. Pt. has a hx of drug use, however upon admission toxicology screen was only positive for cannabinoids. Assessment What has happened this shift: Pt was in her room during shift change and appeared to be sleeping. Pt awaken by this RN and he still appeared very fatigued. States that she believes that the medication is making him tired. Denies any S/I, H/I, and states that he is not hearing any voices at the moment but they were present during the day. Does not want to elaborate on what the voices were about. He remains isolative to his room but did request a snack. He returned to sleeping after eating this. S/I, H/I: Denies A/VH: Denies Sleep: Currently sleeping, see sleep assessment for total hours ADL's: Independent, does require some prompting from staff Group attendance: maintenance technician 2nd shift, not groups. Were meds taken: Yes Any med S/E: Pt reports increased fatigue. Mental Status Exam Appearance: Appropriately dressed, wearing green unit scrubs. Eye contact: Fair, direct. Behavior: Cooperative, fatigued, isolative, and guarded. Speech: His speech remains soft. Mood: Appears depressed. Affect: Blunted. Thought process: Poverty of Thought Thought Content: Sleeping, medication side effects Cognition: A&O X4 Insight: Poor Judgment: Poor Interventions PRN's used: None Therapeutic interventions: Maintained a safe and therapeutic environment, ensured contract for safety, provided clear and simple instructions, attempted to orient to reality, provided active listening and positive encouragement, encouraged independent performance of ADLs, and maintained Q 15min safety checks. Restraints/seclusion/emergency medication: N/A Justification of Continued Inpatient Treatment: Per KRISTEN Silver, pt. remains a DTS r/t ongoing A/RASCON. He requires further stabilization, medication adjustments, and a safe and therapeutic environment.
[2019-08-10] MEDS: quetiapine 100mg tablet PO SCH ×4 (08:12→20:28)
[2019-08-10] MEDS: propranolol 40mg tablet PO SCH ×3 (08:12→20:28)
[2019-08-10] MEDS: carBAMazepine Ext. Release 200 MG TAB.ER.12H PO SCH ×2 (08:12→20:28)
[2019-08-10 08:30] VITALS: BP 107/63
--- NOTE | 2019-08-10 17:58 | NUR ---
Nursing Progress Note: Geoff Legal hold: 5250 Client on involuntary status for DTS. Received report from LIDYA Arredondo, using SBAR Why are they here: Pt admitted to [place] [facility] on a 5150 for DTS at 1415. Patient is brought up to the unit from ER overflow. Patient had reported that he was hitting himself in the face multiple times a day because the voices tell him to. He reported that he felt hopeless that his symptoms will ever improve and was thinking about overdosing on his prescription medication. Patient was placed on a 5150hold for DTS. Assessment What happened this shift: Received pt. sleeping in bed at shift change. Patient continues to isolate and is withdrawn. He sits often alone at a table eating his meals. Patient does not initiate contact, buy answers questions appropriately. Patient takes all medications without incident. S/I, H/I: denies A/VH: + CAH Sleep: 10 hrs NOC, napped ADL's: independent Group attendance: No group. Were Meds taken: yes Any med S/E: None reported or observed. Mental Status Exam Appearance: Freshly showered, clean and neat. Eye contact: direct Behavior: Isolative and withdrawn. Cooperative. Speech: soft tone, normal rate/rythm Mood: Slightly depressed. Affect: Blunted. Thought process: linear, goal directed Thought content: Discharge plans. Cognition: A/O X4 Insight: good Judgment: fair Interventions PRN's used: None Therapeutic interventions: 1:1 therapeutic assessment, maintained safe therapeutic milieu, provided active listening with positive reinforcement, provided medication administration/education/monitoring as needed; Q15 safety checks. Restraints/seclusion/emergency medication: N/A Justification of Continued Inpatient Treatment: Continued therapeutic support and medication management needed to provide stabilization, prevent decompensation, improve coping mechanisms decreasing risk to patient and re-admittance.
[2019-08-10 20:00] VITALS: BP 117/73
--- NOTE | 2019-08-11 01:02 | NUR ---
Nursing Progress Note: Legal hold: 5250 Client on involuntary status for DTS Report received from nurse with use of SBAR: KRYSTLE Tafoya Why are they here: Pt admitted to [place] [facility] on a 5150 for DTS from ER overflow. Patient had reported that he was hitting himself in the face multiple times a day over the past few days because the voices tell him to. He also reported that he felt hopeless that his symptoms will never improve, and was thinking about overdosing on his prescription medication. Pt. currently lives with his father who reports that he fears that the pt. will attempt to harm himself. Pt. has a hx of drug use, however upon admission toxicology screen was only positive for cannabinoids. Assessment What has happened this shift: Pt was observed ambulating the isles at shift of change but later retired to his room to nap. He is still not engaging in conversation with other patients or this chief writer and answers are closed ended. Pt remained sleeping and isolative to his room for the rest of the evening. He was cooperative during 1:1 physical assessment and took all his HS meds without any issues. He states that even though he still feels tired from all the medication he is taking, he feels that his energy level is improving. When asked about hallucinations, he denies. He also denies any anxiety. Pt went back to sleeping after medication pass. S/I, H/I: Denies A/VH: Denies Sleep: Currently sleeping, see sleep assessment for total hours ADL's: Independent, does require some prompting from staff Group attendance: third shift lieutenant, not groups. Were meds taken: Yes Any med S/E: Pt reports increased fatigue. Mental Status Exam Appearance: Appropriately dressed, wearing green unit scrubs. Eye contact: Fair, direct. Behavior: Cooperative, fatigued, isolative, and guarded. Speech: His speech remains soft. Mood: Appears depressed. Affect: Blunted. Thought process: Poverty of Thought Thought Content: Feeling tired. Cognition: A&O X4 Insight: Poor Judgment: Poor Interventions PRN's used: None Therapeutic interventions: Maintained a safe and therapeutic environment, ensured contract for safety, provided clear and simple instructions, attempted to orient to reality, provided active listening and positive encouragement, encouraged independent performance of ADLs, and maintained Q 15min safety checks. Restraints/seclusion/emergency medication: N/A Justification of Continued Inpatient Treatment: KRISTEN Thakkar, pt. remains a DTS r/t ongoing A/RASCON. He requires further stabilization, medication adjustments, and a safe and therapeutic environment.
[2019-08-11 08:00] VITALS: BP 121/67
[2019-08-11] MEDS: propranolol 40mg tablet PO SCH ×3 (08:16→21:24)
[2019-08-11] MEDS: carBAMazepine Ext. Release 200 MG TAB.ER.12H PO SCH ×2 (08:16→21:24)
[2019-08-11] MEDS: quetiapine 100mg tablet PO SCH ×4 (08:16→21:24)
--- NOTE | 2019-08-11 18:24 | NUR ---
Nursing Progress Note: Legal hold: 5250 Client on involuntary status for DTS Report received from nurse with use of SBAR: KRYSTLE Arredondo Why are they here: Pt admitted to [place] for [facility] on a 5150 for DTS from ER overflow. Patient had reported that he was hitting himself in the face multiple times a day over the past few days because the voices tell him to. He also reported that he felt hopeless that his symptoms will never improve, and was thinking about overdosing on his prescription medication. Pt. currently lives with his father who reports that he fears that the pt. will attempt to harm himself. Pt. has a hx of drug use, however upon admission toxicology screen was only positive for cannabinoids. Assessment What has happened this shift: Patient is observed sleeping at change of shift. During med pass patient states that his medications are making him tired, however, he states that his AH have decreased and are less mean than they were before. Patient does isolate to his room but is also observed in the group room sitting with others while they watch a movie. He is friendly during each interaction. S/I, H/I: Denies A/VH: reports improvement. Sleep: 9hrs NOC ADL's: Independent, does require some prompting from staff Group attendance: no Were meds taken: Yes Any med S/E: Pt reports increased fatigue. Mental Status Exam Appearance: Appropriately dressed, wearing green unit scrubs. Eye contact: direct. Behavior: Cooperative, fatigued Speech: soft tone, normal rate and rhythm Mood: improved than in prior shifts Affect: Blunted. Thought process: Poverty of Thought Thought Content: Feeling tired. Cognition: A&O X4 Insight: Poor Judgment: Poor Interventions PRN's used: None Therapeutic interventions: 1:1 therapeutic assessment, maintained safe therapeutic milieu, provided active listening with positive reinforcement, provided medication administration/education/monitoring as needed; Q15 safety checks. Restraints/seclusion/emergency medication: N/A Justification of Continued Inpatient Treatment: Continued therapeutic support and medication management needed to provide stabilization, prevent decompensation, and improve coping mechanisms decreasing risk to patient and re-admittance.
[2019-08-11 19:00] VITALS: BP 104/61
--- NOTE | 2019-08-12 05:14 | NUR ---
Nursing Progress Note: Legal hold: 5250 Client on involuntary status for DTS Report received from nurse with use of SBAR: KRYSTLE Anderson Why are they here: Pt admitted to [place] for [facility] on a 5150 for DTS from ER overflow. Patient had reported that he was hitting himself in the face multiple times a day over the past few days because the voices tell him to. He also reported that he felt hopeless that his symptoms will never improve, and was thinking about overdosing on his prescription medication. Pt. currently lives with his father who reports that he fears that the pt. will attempt to harm himself. Pt. has a hx of drug use, however upon admission toxicology screen was only positive for cannabinoids. Assessment What has happened this shift: Patient laying in bed at the beginning of shift. Pleasant and cooperative with all care; compliant with all medication. This screen writer asked patient about what brought him up to the unit and he responded, holding his pills, "I need to take these, more of these." Patient denies SI, HI, A/VH this shift. Patient didn't participate in HS snack and remained in his bed throughout the shift. Patient's father called the unit wanting to talk with patient's doctor about concerns r/t possible discharge. MD aware and will follow up. S/I, H/I: Denies A/VH: Denies Sleep: Refer to sleep assessment ADL's: Independent, does require some prompting from staff Group attendance: No groups this shift Were meds taken: Yes Any med S/E: Pt reports increased fatigue. Mental Status Exam Appearance: Appropriately dressed, wearing green unit scrubs. Eye contact: Direct. Behavior: Cooperative, fatigued Speech: soft tone, normal rate and rhythm Mood: "Better" Affect: Blunted. Thought process: Poverty of Thought Thought Content: Tired Cognition: A&O X4 Insight: Poor Judgment: Poor Interventions PRN's used: None Therapeutic interventions: 1:1 therapeutic assessment, maintained safe therapeutic milieu, provided active listening with positive reinforcement, provided medication administration/education/monitoring as needed; Q15 safety checks. Restraints/seclusion/emergency medication: N/A Justification of Continued Inpatient Treatment: Continued therapeutic support and medication management needed to provide stabilization, prevent decompensation, and improve coping mechanisms decreasing risk to patient and re-admittance.
[2019-08-12 08:00] VITALS: BP 107/56
[2019-08-12] MEDS: propranolol 40mg tablet PO SCH ×3 (08:59→20:35)
[2019-08-12] MEDS: carBAMazepine Ext. Release 200 MG TAB.ER.12H PO SCH ×2 (09:00→20:36)
[2019-08-12] MEDS: quetiapine 100mg tablet PO SCH ×4 (09:00→20:35)
--- NOTE | 2019-08-12 16:02 | NUR ---
Discharge Presenting Issues: Pt's stable on current meds regiment, have been sleeping well and denying SI/HI. Pt continues to experience AH but reports, "they are not intense anymore". Attending physician requesting dcp services for pt. Interventions: SS met w/pt and engaged him in finalizing his dcp. Ss assisted pt in completing a New Patient Registration packet, signed consents & DAMASO to establish PMD services @ [facility]. Packet faxed to [facility], a nurse will contact pt following d/c to schedule his initial appointment. SS also had t/c with [facility] to link pt with an outpatient MH provider, per t/c, pt needs [facility] referral from [facility] or [facility]. SS had t/c w/[facility], per t/c pt is scheduled to see Dr. Maldonado @ [facility] on 09/14 @ 9:00 am. Pt did not want to be seen by Dr. Spaulding again as pt had been told that his sxs were due to substance use. SS provided information for accessing a refill from PMD, what to do in the event that he begins to feel unsafe again. Plan: Pt to d/c on Thursday and f/u with outpatient PMD & [facility]. Ada Simon LCSW Addendum: 08/12/19 at 1632 by Ada Simon SS Amended: Links added.
--- NOTE | 2019-08-12 18:12 | NUR ---
Nursing Progress Note: Legal hold: 5250 Client on involuntary status for DTS Report received from nurse with use of SBAR: KRYSTLE Hidalgo Why are they here: Pt admitted to [facility] on a 5150 for DTS from ER overflow. Patient had reported that he was hitting himself in the face multiple times a day over the past few days because the voices tell him to. He also reported that he felt hopeless that his symptoms will never improve, and was thinking about overdosing on his prescription medication. Pt. currently lives with his father who reports that he fears that the pt. will attempt to harm himself. Pt. has a hx of drug use, however upon admission toxicology screen was only positive for cannabinoids. Assessment What has happened this shift: Patient is observed sleeping at change of shift. Patient wakes just prior to breakfast and is observed lying in bed with his eyes open just staring off. He states that he slept well the night before. He states that he is having AH and that they are bothersome however are not negative in nature. He denies any feelings of depression or wanting to harm himself. He states the meds do make him tired but feels that they are working well. He denies any needs at this time and is encouraged to let staff know if that changes. Patient eats all his meals with peers in the group room. Education r/t handwashing is provided and patient is observed washing hands regularly. S/I, H/I: Denies A/VH: reports improvement. Sleep: 8.75hrs NOC ADL's: Independent Group attendance: no groups Were meds taken: Yes Any med S/E: no Mental Status Exam Appearance: Appropriately dressed, wearing green unit scrubs. Eye contact: direct. Behavior: Cooperative Speech: soft tone, normal rate and rhythm Mood: reports good mood Affect:restricted Thought process: Poverty of Thought Thought Content: no delusional thought content expressed Cognition: A&O X4 Insight: Poor Judgment: Poor Interventions PRN's used: None Therapeutic interventions: 1:1 therapeutic assessment, maintained safe therapeutic milieu, provided active listening with positive reinforcement, provided medication administration/education/monitoring as needed; Q15 safety checks. Restraints/seclusion/emergency medication: N/A Justification of Continued Inpatient Treatment: Continued therapeutic support and medication management needed to provide stabilization, prevent decompensation, and improve coping mechanisms decreasing risk to patient and re-admittance.
[2019-08-12 19:00] VITALS: BP 109/59
--- NOTE | 2019-08-13 05:04 | NUR ---
Nursing Progress Note: Legal hold: 5250 Client on involuntary status for DTS Report received from nurse with use of SBAR: Ingrid RN Why are they here: Pt admitted to [facility] on a 5150 for DTS from ER overflow. Patient had reported that he was hitting himself in the face multiple times a day over the past few days because the voices tell him to. He also reported that he felt hopeless that his symptoms will never improve, and was thinking about overdosing on his prescription medication. Pt. currently lives with his father who reports that he fears that the pt. will attempt to harm himself. Pt. has a hx of drug use, however upon admission toxicology screen was only positive for cannabinoids. Assessment What has happened this shift: Patient observed laying in bed at the beginning of shift. Pleasant and cooperative with all care; compliant with all medication. Patient observed in community room watching tv and participating in HS snack. Patient denies SI, HI, A/VH. No delusional thought content provided this shift. S/I, H/I: Denies A/VH: Denies Sleep: Refer to sleep assessment ADL's: Independent Group attendance: No groups this shift Were meds taken: Yes Any med S/E: None observed, none reported. Mental Status Exam Appearance: Appropriately dressed, wearing green unit scrubs. Eye contact: Direct. Behavior: Cooperative, isolative to self Speech: soft tone, normal rate and rhythm Mood: "Good" Affect: Blunted. Thought process: Poverty of Thought Thought Content: Unable to assess Cognition: A&O X4 Insight: Poor Judgment: Poor Interventions PRN's used: None Therapeutic interventions: 1:1 therapeutic assessment, maintained safe therapeutic milieu, provided active listening with positive reinforcement, provided medication administration/education/monitoring as needed; Q15 safety checks. Restraints/seclusion/emergency medication: N/A Justification of Continued Inpatient Treatment: Continued therapeutic support and medication management needed to provide stabilization, prevent decompensation, and improve coping mechanisms decreasing risk to patient and re-admittance.
[2019-08-13 07:42] VITALS: BP 119/65
[2019-08-13] MEDS: propranolol 40mg tablet PO SCH ×3 (07:51→21:00)
[2019-08-13] MEDS: carBAMazepine Ext. Release 200 MG TAB.ER.12H PO SCH ×2 (07:52→20:00)
[2019-08-13] MEDS: quetiapine 100mg tablet PO SCH ×4 (07:52→21:00)
--- NOTE | 2019-08-13 14:27 | NUR ---
Reassessment: Pt continues meeting nutrient needs with average 75-100% PO intake on regular diet. [facility] 08/12. No nutrition intervention warranted at this time. Will continue to follow. Rec: 1. continue regular diet 2. bowel care as needed 3. wt per rx Addendum: 08/13/19 at [address] Amended: Links added.
--- NOTE | 2019-08-13 16:38 | NUR ---
Nursing Progress Note: Legal hold: 5250 Client on involuntary status for DTS Report received from nurse with use of SBAR: KRYSTLE Hidalgo Why are they here: Pt admitted to [facility] on a 5150 for DTS from ER overflow. Patient had reported that he was hitting himself in the face multiple times a day over the past few days because the voices tell him to. He also reported that he felt hopeless that his symptoms will never improve, and was thinking about overdosing on his prescription medication. Pt. currently lives with his father who reports that he fears that the pt. will attempt to harm himself. Pt. has a hx of drug use, however upon admission toxicology screen was only positive for cannabinoids. Assessment What has happened this shift: Pt received sleeping in bed. Pt awoken for am meds which he took without complaint. Pt up for breakfast and all meals. Pt also attended off unit patio walk and sat in dayroom for afternoon movie and popcorn group. Pt did not interact with peers or staff unless interacted with. Pt has flat affect and states his mood is still depressed. Pt denies suicidal thoughts at this time. Pt does endorse auditory hallucinations, but states he can no longer make out what they are saying. S/I, H/I: Denies A/VH: reports improvement. Sleep: napped at times today ADL's: Independent Group attendance: no groups Were meds taken: Yes Any med S/E: no Mental Status Exam Appearance: Appropriately dressed, wearing green unit scrubs. Eye contact: direct. Behavior: Cooperative Speech: soft tone, normal rate and rhythm Mood: reports good mood Affect:restricted Thought process: Poverty of Thought Thought Content: no delusional thought content expressed Cognition: A&O X4 Insight: Poor Judgment: Poor Interventions PRN's used: None Therapeutic interventions: 1:1 therapeutic assessment, maintained safe therapeutic milieu, provided active listening with positive reinforcement, provided medication administration/education/monitoring as needed; Q15 safety checks. Restraints/seclusion/emergency medication: N/A Justification of Continued Inpatient Treatment: Continued therapeutic support and medication management needed to provide stabilization, prevent decompensation, and improve coping mechanisms decreasing risk to patient and re-admittance.
[2019-08-13 19:00] VITALS: BP 115/65
--- NOTE | 2019-08-14 05:40 | NUR ---
Nursing Progress Note: Legal hold: 5250 Client on involuntary status for DTS Report received from nurse with use of SBAR: LIDYA Anderson Why are they here: Pt admitted to [facility] on a 5150 for DTS from ER overflow. Patient had reported that he was hitting himself in the face multiple times a day over the past few days because the voices tell him to. He also reported that he felt hopeless that his symptoms will never improve, and was thinking about overdosing on his prescription medication. Pt. currently lives with his father who reports that he fears that the pt. will attempt to harm himself. Pt. has a hx of drug use, however upon admission toxicology screen was only positive for cannabinoids. Assessment What has happened this shift: Patient observed laying in bed at the beginning of shift. Pleasant and cooperative with all care; compliant with all medication. Patient observed briefly in group room watching TV and participating in HS snack. Patient denies SI, HI, A/VH. No delusional thought content provided this shift. S/I, H/I: Denies A/VH: Denies Sleep: Refer to sleep assessment ADL's: Independent Group attendance: No groups this shift Were meds taken: Yes Any med S/E: None observed, none reported. Mental Status Exam Appearance: Appropriately dressed, wearing green unit scrubs. Eye contact: Direct. Behavior: Cooperative, isolative to self Speech: Minimal, soft tone, normal rate and rhythm Mood: "I'm fine" Affect: Blunted. Thought process: Poverty of Thought Thought Content: Unable to assess Cognition: A&O X4 Insight: Poor Judgment: Poor Interventions PRN's used: None Therapeutic interventions: 1:1 therapeutic assessment, maintained safe therapeutic milieu, provided active listening with positive reinforcement, provided medication administration/education/monitoring as needed; Q15 safety checks. Restraints/seclusion/emergency medication: N/A Justification of Continued Inpatient Treatment: Continued therapeutic support and medication management needed to provide stabilization, prevent decompensation, and improve coping mechanisms decreasing risk to patient and re-admittance.
[2019-08-14 08:00] VITALS: BP 115/65
[2019-08-14] MEDS: carBAMazepine Ext. Release 200 MG TAB.ER.12H PO SCH (08:03)
[2019-08-14] MEDS: quetiapine 100mg tablet PO SCH (08:03)
[2019-08-14] MEDS: propranolol 40mg tablet PO SCH (08:04)
[2019-08-14] MEDS ORDERED: oseltamivir phos 75mg capsule PO SCH (09:00)
[2019-08-14] MEDS ORDERED: HYDR-3686 PO (11:03)
[2019-08-14] MEDS ORDERED: PROP40TA72 PO (11:03)
[2019-08-14] MEDS ORDERED: TAM75C PO (11:03)
[2019-08-14] MEDS ORDERED: QUET100T33 PO ×2 (11:03)
[2019-08-14] MEDS ORDERED: CARB-101 PO (11:03)
--- NOTE | 2019-08-14 12:51 | NUR ---
Discharge Note: Pt escorted from unit at 1245 by RN and security infrastructure engineer. Pt met dad in [facility] who is picking up the pt. Discharge instructions including medications and followup plan explained and pt verbalized understanding, signed and copy given to pt. Medications called in to pharmacy at [facility] on [address]. Smoking cessation education provided to pt. All belongings returned to the pt and he signed as having received all. Pt denies a/v hallucinations today and he denies depression and denies suicidal ideation.
== END 2019-08-14 12:40 | disposition home or self-care (01) | DRG 751 ==
LOC: ADULT MH 14:31
PROVIDERS: ADMIT Psychiatry & Neurology Psychiatry; ATTEND Psychiatry & Neurology Psychiatry
DX: F29 Unspecified psychosis not due to a substance or known physiological condition (principal); F17.210 Nicotine dependence, cigarettes, uncomplicated; J10.1 Influenza due to other identified influenza virus with other respiratory manifestations; Z59.0 Homelessness; Z79.899 Other long term (current) drug therapy; Z71.6 Tobacco abuse counseling
CPT/HCPCS: 36415; 80061; 83036; 85025; 87081

== ENCOUNTER 2020-01-26 20:04 | Emergency (ER) | payer MEDICAID ==
[~2020-01-26] VITALS: Ht 190.5 cm; Wt 123.0 kg
[~2020-01-26 20:04] MED LIST changes: +CARB-101 PO; +HYDR-3686 PO; -PROP40TA7 PO; +PROP40TA72 PO; -QUET-1 PO; +QUET100T33 PO; -QUET200T PO; +TAM75C PO
--- NOTE | 2020-01-26 20:13 | NUR ---
Pt ambulated to room 15, placed in room. LIDYA Negrete with pt in view.
--- NOTE | 2020-01-26 20:47 | NUR ---
REC'D CALL FROM PTS FATHER AND DR. NGUYEN - THEY BOTH STATED THAT THE PT MOST LIKELY WON'T SPEAK MUCH TO HIS FEELINGS/SUICIDAL IDEATION. PER PATRICK PT HAS PSEUDOSEIZURE TYPE ACTIVITY AND WILL HIT HIMSELF - PT TOLD FATHER THAT HE "COULDN'T TAKE IT ANYMORE" - FATHER STATED THAT PT HAS A SWOLLEN HAND AND THAT IF WE CAST IT HE WILL MOST LIKELY INJURE HIMSELF WITH IT WHEN HE HITS HIMSELF. PT ALSO IS HEARING VOICES.
--- NOTE | 2020-01-26 21:05 | NUR ---
FATHER STATES THAT PATIENT BELIEVES HE HAS AN RFID CHIP IMPLANTED IN HIM AND THAT HE IS BEING CONTROLLED BY THE GOVERNMENT. HE WENT OVER THE PTS MEDICATIONS WITH ME WELL AND MED REC HAS BEEN UPDATED.
[2020-01-26] MEDS ORDERED: CARB200C7 PO (21:10)
[2020-01-26] MEDS ORDERED: PROP40TA7 PO (21:10)
[2020-01-26] MEDS ORDERED: QUET-1 PO ×2 (21:10)
[2020-01-26 21:59] LABS: URINE AMPHETAMINE SCREEN NEGATIVE (Neg); URINE BARBITUATE SCREEN NEGATIVE (Neg); URINE BENZODIAZEPINES SCREEN NEGATIVE (Neg); URINE CANNABINOID SCREEN NEGATIVE (Neg); URINE COCAINE SCREEN NEGATIVE (Neg); URINE METHADONE SCREEN NEGATIVE (Neg); URINE OPIATE SCREEN NEGATIVE (Neg); URINE PHENCYCLIDINE SCREEN NEGATIVE (Neg)
[2020-01-26 22:04] LABS: ALANINE AMINOTRANSFERASE 37 U/L (12-78); ALBUMIN 4.1 G/DL (3.4-5.0); ALBUMIN/GLOBULIN RATIO 1.3 (1.1-1.5); ALKALINE PHOSPHATASE 75 IU/L (46-116); ANION GAP 14 (8-16); ASPARTATE AMINO TRANSFERASE 18 U/L (10-37); BILIRUBIN,TOTAL 0.2 MG/DL (0.1-1.0); BLOOD UREA NITROGEN 7 MG/DL (7-18); BUN/CREATININE RATIO 7.8 (5.4-32.0); CALCIUM 8.5 MG/DL (8.5-10.1); CHLORIDE 103 MMOL/L (99-107); GLUCOSE 86 MG/DL (70-104); POTASSIUM 3.4 MMOL/L (3.5-5.1); SODIUM 139 MMOL/L (135-145); TOTAL PROTEIN 7.3 G/DL (6.4-8.2); eGFR > 90 ML/MIN
[2020-01-26] MEDS ORDERED: quetiapine 100mg tablet PO SCH (22:26)
[2020-01-26 22:54] LABS: BASOPHILS % (AUTO) 0.6 % (0-1); EOSINOPHILS # (AUTO) 0.2 X10'3 (0-0.9); EOSINOPHILS % (AUTO) 3.7 % (0-6); HEMATOCRIT 42.5 % (42.0-52.0); HEMOGLOBIN 14.9 g/dl (14.0-17.9); LYMPHOCYTES # (AUTO) 1.7 X10'3 (1.1-4.8); LYMPHOCYTES % (AUTO) 25.4 % (21-51); MEAN CORPUSCULAR HEMOGLOBIN 31.9 PG (27.0-31.0); MEAN PLATELET VOLUME 8.7 FL (7.4-10.4); MONOCYTES # (AUTO) 0.7 X10'3 (0-0.9); MONOCYTES % (AUTO) 10.8 % (2-12); NEUTROPHILS % (AUTO) 59.5 % (42-75); PLATELET COUNT 205 X10'3 (140-440); RED BLOOD COUNT 4.67 X10'6 (4.70-6.10); RED CELL DISTRIBUTION WIDTH 12.9 % (11.5-14.5); WHITE BLOOD COUNT 6.7 X10'3 (4.5-11.0)
[2020-01-26 23:10] LABS: ETHANOL 0.061 GM/DL (0.0-0.010)
--- NOTE | 2020-01-27 00:17 | NUR ---
pt moved from bed 15 in main ed to bed 26 in ed overflow. pt cooperative. denies si/hi. pt given food and warm blanket and pt went back to sleep.
--- NOTE | 2020-01-27 01:40 | NUR ---
pt resting in bed on back. no s/s of distress or pain. will continue to monitor. respiratory rate of 16.
--- NOTE | 2020-01-27 05:00 | NUR ---
packet faxed to [facility].
[2020-01-27] MEDS ORDERED: carBAMazepine 100mg chewable tablet PO SCH (08:00)
[2020-01-27] MEDS: propranolol 10mg tablet PO SCH ×2 (08:23→13:08)
[2020-01-27] MEDS: quetiapine 100mg tablet PO SCH ×3 (08:24→18:21)
[2020-01-27 08:44] LABS: CLARITY,URINE CLEAR (Clear); COLOR,URINE STRAW (Yellow); GLUCOSE, URINE NEGATIVE (Neg); KETONES,URINE NEGATIVE (Neg); LEUKOCYTE ESTERASE ,URINE TRACE (Neg); NITRITES, URINE NEGATIVE (Neg); OCCULT BLOOD,URINE NEGATIVE (Neg); PH,URINE 6.5 (4.8-8.0); PROTEIN,URINE NEGATIVE (Neg); UROBILINOGEN,URINE 0.2 E.U/dL (0.2-1.0)
[2020-01-27 08:46] LABS: UA COLLECTION TYPE CLN CATCH MIDSTREAM
[2020-01-27 08:52] LABS: RBC,URINE NONE SEEN /HPF (0-2); WBC,URINE 0-4 /HPF (0-4)
[2020-01-27 08:53] LABS: BACTERIA,URINE NONE SEEN /HPF (Neg); MUCUS STRANDS NONE SEEN /LPF (Neg); SQUAMOUS EPITHELIAL CELL,UR NONE SEEN /LPF (FEW)
--- NOTE | 2020-01-27 08:55 | NUR ---
PACKET FAXED TO [facility]
--- NOTE | 2020-01-27 09:16 | NUR ---
PT ATE BREAKFAST AND IN NOW RESTING WITH EYES COSED
--- NOTE | 2020-01-27 10:40 | NUR ---
BARRY FROM [facility]
--- NOTE | 2020-01-27 12:03 | NUR ---
PT PLACED ON 5150 BY [facility]. PT RESTING WITH EYES CLOSED RR EQUAL AND UNLABOERED
--- NOTE | 2020-01-27 12:41 | NUR ---
PT SLEEPING, AUNT SHAHRZAD AND GRANDMA CALLED [phone], WILL LET PT KNOW ONCE HE IS AWAKE
--- NOTE | 2020-01-27 13:45 | NUR ---
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 The patient states today, "I'm OK. I just had a seizure." He reports his seizures manifest as "punching himself and then getting stiff". He explains that his family (father) brought him into the ER yesterday. He admits to using alcohol daily and was .06 when medical clearance was completed. He reports that he does not think alcohol is a contributing factor to his symptoms and has not engaged in any outpatient ELEN treatment. Reports he does not have interest at this time to engage with ELEN program outpatient or residential. He did have EEG study at [facility] and they reported no abnormalities. He reports that he wants his medications changed. He is unable to elaborate on symptomology he is experiencing. Affect is blunted and poverty of speech present. He denies any hallucinations or perceptual disturbances. He does not appear to be responding to internal stimuli. He has not contacted his father and cannot state a clear plan for food, clothing and mcc. Medications from last inpatient psychiatric stay at [facility] were re-started. He reports medication compliance prior to this mental health crisis. Patient remains on 5150 hold. Will request re-evaluation due to intoxication at the time of symptoms, which has now resolved. Patient denies any plan to harm himself.
--- NOTE | 2020-01-27 14:46 | NUR ---
pt sleeping comfortably in no apparent distress
--- NOTE | 2020-01-27 14:58 | NUR ---
pts inge perez called phone number is [phone]. pt is sleeping i will give pt message once he is awake
--- NOTE | 2020-01-27 15:57 | NUR ---
kirsten called and was wanting report on pt to see if hes a canidate for there.
--- NOTE | 2020-01-27 16:39 | NUR ---
PT ACCEPTED AT [address] [facility] [address] PRESLEY.
[2020-01-27 17:08] VITALS: BP 113/65
--- NOTE | 2020-01-27 17:44 | NUR ---
PT UP TO BATHROOM WITH STEADY GAIT
--- NOTE | 2020-01-27 17:50 | NUR ---
1845 SECRET CODE EXPERT TO [facility]GADO PER [facility]
== END 2020-01-27 19:06 ==
LOC: ER 20:04
DX: F29 Unspecified psychosis not due to a substance or known physiological condition (principal); R45.851 Suicidal ideations; F41.9 Anxiety disorder, unspecified; F31.9 Bipolar disorder, unspecified; F20.9 Schizophrenia, unspecified; Z88.8 Allergy status to other drugs, medicaments and biological substances; Z79.899 Other long term (current) drug therapy
CPT/HCPCS: 36415; 80053; 80305; 80320; 81001; 84443; 85025; 87088; 99285

== ENCOUNTER 2022-02-19 10:08 | Outpatient (CLI) | payer MEDICAID ==
[~2022-02-19 10:08] MED LIST changes: -BENZ1TAB7 PO; -CARB-101 PO; +CARB200C7 PO; -HYDR-3686 PO; +PROP40TA7 PO; -PROP40TA72 PO; +QUET-1 PO; -QUET100T33 PO; -TAM75C PO
[2022-02-19 11:38] LABS: BASOPHILS % (AUTO) 0.9 % (0-1); EOSINOPHILS # (AUTO) 0.1 X10'3 (0-0.9); EOSINOPHILS % (AUTO) 2.1 % (0-6); HEMATOCRIT 44.2 % (42.0-52.0); HEMOGLOBIN 15.2 g/dl (14.0-17.9); LYMPHOCYTES # (AUTO) 1.2 X10'3 (1.1-4.8); LYMPHOCYTES % (AUTO) 23.4 % (21-51); MEAN CORPUSCULAR HEMOGLOBIN 31.2 PG (27.0-31.0); MEAN CORPUSCULAR HGB CONC 34.5 g/dL (33.0-36.5); MEAN CORPUSCULAR VOLUME 90.4 FL (78-98); MEAN PLATELET VOLUME 8.8 FL (7.4-10.4); MONOCYTES # (AUTO) 0.5 X10'3 (0-0.9); MONOCYTES % (AUTO) 10.3 % (2-12); NEUTROPHILS # (AUTO) 3.3 X10'3 (1.8-7.7); NEUTROPHILS % (AUTO) 63.3 % (42-75); PLATELET COUNT 196 X10'3 (140-440); RED BLOOD COUNT 4.89 X10'6 (4.70-6.10); RED CELL DISTRIBUTION WIDTH 12.9 % (11.5-14.5); WHITE BLOOD COUNT 5.2 X10'3 (4.5-11.0)
[2022-02-19 12:01] LABS: HEMOGLOBIN A1C 5.6 % (4.5-6.2)
[2022-02-19 13:17] LABS: ALANINE AMINOTRANSFERASE 29 U/L (12-78); ALKALINE PHOSPHATASE 107 IU/L (46-116); ANION GAP 18 (8-16); ASPARTATE AMINO TRANSFERASE 16 U/L (10-37); BILIRUBIN,TOTAL 0.3 MG/DL (0.1-1.0); CALCIUM 9.3 MG/DL (8.5-10.1); CARBAMAZEPINE (TEGRETOL) 9.9 UG/ML (4.0-12.0); CHLORIDE 106 MMOL/L (99-107); CHOL/HDL RATIO 5.7 (0.00-4.99); CHOLESTEROL 226 MG/DL (0-200); GLUCOSE 99 MG/DL (70-104); HDL CHOLESTEROL 40 MG/DL (35-60); LDL CHOLESTEROL 153 MG/DL (50-100); POTASSIUM 4.2 MMOL/L (3.5-5.1); SODIUM 142 MMOL/L (135-145); TOTAL CARBON DIOXIDE 18.5 MMOL/L (24-32); TRIGLYCERIDES 144 MG/DL (20-135)
[2022-02-20 11:37] LABS: PROLACTIN 7.9 ng/mL (4.0-15.2); THIIODOTHRONINE, FREE, SERUM 2.7 pg/mL (2.0-4.4)
== END 2022-02-19 23:59 | disposition home or self-care (01) ==
LOC: LAB 10:08
PROVIDERS: ATTEND Nurse Practitioner Family
DX: F20.9 Schizophrenia, unspecified (principal); Z79.899 Other long term (current) drug therapy; T43 Poisoning by, adverse effect of and underdosing of psychotropic drugs, not elsewhere classified; F19.21 Other psychoactive substance dependence, in remission
CPT/HCPCS: 36415; 80053; 80061; 80156; 83036; 84146; 84443; 84481; 85025; 86376

== ENCOUNTER 2022-05-03 20:11 | Emergency (ER) | payer MEDICAID ==
[~2022-05-03] VITALS: Ht 193 cm; Wt 103.0 kg
[~2022-05-03 20:11] MED LIST changes: +NAPR-1166 PO; +OMEP40CA21 PO; +TIZA-205 PO
[2022-05-03 22:54] LABS: BASOPHILS % (AUTO) 0.6 % (0-1); EOSINOPHILS # (AUTO) 0.2 X10'3 (0-0.9); EOSINOPHILS % (AUTO) 2.3 % (0-6); HEMATOCRIT 45.8 % (42.0-52.0); HEMOGLOBIN 15.9 g/dl (14.0-17.9); LYMPHOCYTES # (AUTO) 2.2 X10'3 (1.1-4.8); LYMPHOCYTES % (AUTO) 31.3 % (21-51); MEAN CORPUSCULAR HEMOGLOBIN 31.1 PG (27.0-31.0); MEAN CORPUSCULAR HGB CONC 34.8 g/dL (33.0-36.5); MEAN CORPUSCULAR VOLUME 89.2 FL (78-98); MEAN PLATELET VOLUME 8.7 FL (7.4-10.4); MONOCYTES # (AUTO) 0.7 X10'3 (0-0.9); MONOCYTES % (AUTO) 9.4 % (2-12); NEUTROPHILS % (AUTO) 56.4 % (42-75); PLATELET COUNT 234 X10'3 (140-440); RED BLOOD COUNT 5.13 X10'6 (4.70-6.10); RED CELL DISTRIBUTION WIDTH 13.2 % (11.5-14.5); WHITE BLOOD COUNT 7.1 X10'3 (4.5-11.0)
[2022-05-03 23:09] LABS: ALANINE AMINOTRANSFERASE 38 U/L (12-78); ALBUMIN 4.3 G/DL (3.4-5.0); ALBUMIN/GLOBULIN RATIO 1.1 (1.1-1.5); ALKALINE PHOSPHATASE 93 IU/L (46-116); ANION GAP 12 (8-16); ASPARTATE AMINO TRANSFERASE 23 U/L (10-37); BILIRUBIN,TOTAL 0.3 MG/DL (0.1-1.0); BLOOD UREA NITROGEN 19 MG/DL (7-18); BUN/CREATININE RATIO 18.6 (5.4-32.0); CALCIUM 9.4 MG/DL (8.5-10.1); CHLORIDE 98 MMOL/L (99-107); CREATININE 1.02 MG/DL (0.60-1.10); ETHANOL < 0.010 GM/DL (0.0-0.010); GLUCOSE 110 MG/DL (70-104); POTASSIUM 3.9 MMOL/L (3.5-5.1); SODIUM 135 MMOL/L (135-145); TOTAL CARBON DIOXIDE 24.9 MMOL/L (24-32); TOTAL PROTEIN 8.1 G/DL (6.4-8.2); eGFR 84 ML/MIN
[2022-05-04] MEDS ORDERED: OLAN5TAB5 PO ×2 (00:58→07:46)
[2022-05-04] MEDS ORDERED: zyprexa PO (01:04)
[2022-05-04] MEDS ORDERED: PROP40TA72 PO (01:05)
[2022-05-04 01:07] LABS: CLARITY,URINE CLEAR (Clear); COLOR,URINE YELLOW (Yellow); GLUCOSE, URINE NEGATIVE (Neg); KETONES,URINE NEGATIVE (Neg); LEUKOCYTE ESTERASE ,URINE NEGATIVE (Neg); NITRITES, URINE NEGATIVE (Neg); OCCULT BLOOD,URINE NEGATIVE (Neg); PH,URINE 5.5 (4.8-8.0); PROTEIN,URINE NEGATIVE (Neg); UROBILINOGEN,URINE 0.2 E.U/dL (0.2-1.0)
[2022-05-04] MEDS ORDERED: citalopram (01:07)
[2022-05-04 01:09] LABS: UA COLLECTION TYPE VOIDED
[2022-05-04 01:21] LABS: URINE AMPHETAMINE SCREEN NEGATIVE (Neg); URINE BARBITUATE SCREEN NEGATIVE (Neg); URINE BENZODIAZEPINES SCREEN NEGATIVE (Neg); URINE CANNABINOID SCREEN NEGATIVE (Neg); URINE COCAINE SCREEN NEGATIVE (Neg); URINE METHADONE SCREEN NEGATIVE (Neg); URINE OPIATE SCREEN NEGATIVE (Neg); URINE PHENCYCLIDINE SCREEN NEGATIVE (Neg)
--- NOTE | 2022-05-04 01:25 | NUR ---
advised by father Shravan, pt has history of going catatonic and will hit himself if he does this, father's phone number is [phone]
--- NOTE | 2022-05-04 01:27 | NUR ---
per father pt does not have a history of being violent to other people
--- NOTE | 2022-05-04 06:30 | NUR ---
Patient snoring/sleeping supine. No distress observed. Continue to monitor.
--- NOTE | 2022-05-04 08:50 | NUR ---
Patient eating breakfast. No distress observed. Continue to monitor.
--- NOTE | 2022-05-04 09:03 | NUR ---
Andres MIGUEL, evaluating patient. No distress observed. Continue to monitor.
[2022-05-04] MEDS: propranolol 10mg tablet PO SCH ×3 (09:21→20:23)
[2022-05-04] MEDS: citalopram 20mg tablet PO SCH (09:22)
[2022-05-04] MEDS: OLANZapine 5mg rapidly disint. tablet PO SCH (09:22)
[2022-05-04] MEDS: carBAMazepine 100mg chewable tablet PO SCH ×2 (09:28→20:23)
--- NOTE | 2022-05-04 10:23 | NUR ---
Patient is on a 5150 hold. Patient is sleeping on left side with snoring respirations. No distress observed. Continue to monitor.
--- NOTE | 2022-05-04 12:03 | NUR ---
Patient continues to sleep. No distress observed. Continue to monitor.
--- NOTE | 2022-05-04 12:55 | NUR ---
Patient eating lunch. No distress observed. Continue to monitor.
--- NOTE | 2022-05-04 14:39 | NUR ---
Patient sleeping on his right side. Patient offered ear plugs and he took them (as another patient has been yelling nonstop). Continue to monitor.
--- NOTE | 2022-05-04 15:15 | NUR ---
[phone].
--- NOTE | 2022-05-04 16:45 | NUR ---
Patient accepted at [address] to [facility] Lezama. fitness supervisor tomorrow at 1300.
--- NOTE | 2022-05-04 17:56 | NUR ---
Patient awake and reclining in bed. No distress observed. Continue to monitor.
--- NOTE | 2022-05-04 19:05 | NUR ---
Pt was sitting in bed at change of shift eating dinner. Spoke w/his dad. Pt reports he is here to get to placement for med adjustment. Pt reports [facility] that he hears all the time. Pt is sitting quietly reports no needs at this time.
[2022-05-04] MEDS ORDERED: OLANZapine 5mg rapidly disint. tablet PO SCH (21:00)
--- NOTE | 2022-05-04 21:00 | NUR ---
Pt is laying on his right side snoring rr 16
--- NOTE | 2022-05-04 22:57 | NUR ---
Pt is laying in bed on his right side. Appears to be asleep. No s/s distress
--- NOTE | 2022-05-05 00:24 | NUR ---
pt laying on his back snoring quietly rr even and unlabored.
--- NOTE | 2022-05-05 02:37 | NUR ---
Pt laying supine in bed, snoring. RR 16
--- NOTE | 2022-05-05 04:40 | NUR ---
Pt laying on his left side asleep rr even and unlabored no s/s distress.
[2022-05-05 05:36] VITALS: BP 115/78
--- NOTE | 2022-05-05 06:20 | NUR ---
Patient sleeping supine. No distress observed. Continue to monitor.
--- NOTE | 2022-05-05 07:31 | NUR ---
Patient ambultory to BR, steady gait. No distress observed. Continue to monitor.
--- NOTE | 2022-05-05 08:25 | NUR ---
Patient eating breakfast. No distress observed. Continue to monitor.
[2022-05-05] MEDS: propranolol 10mg tablet PO SCH (08:32)
[2022-05-05] MEDS: carBAMazepine 100mg chewable tablet PO SCH (08:32)
[2022-05-05] MEDS: OLANZapine 5mg rapidly disint. tablet PO SCH (08:32)
[2022-05-05] MEDS: citalopram 20mg tablet PO SCH (08:32)
--- NOTE | 2022-05-05 10:32 | NUR ---
Patient sleeping supine. No distress observed. Continue to monitor.
--- NOTE | 2022-05-05 12:17 | NUR ---
Patient eating lunch. No distress observed. Continue to monitor.
== END 2022-05-05 12:22 ==
LOC: ER 20:11
DX: F20.9 Schizophrenia, unspecified (principal); Z20.822 Contact with and (suspected) exposure to COVID-19; F29 Unspecified psychosis not due to a substance or known physiological condition; F31.9 Bipolar disorder, unspecified; Z88.8 Allergy status to other drugs, medicaments and biological substances
CPT/HCPCS: 36415; 80053; 80156; 80305; 80320; 81003; 85025; 87811; 99285

== ENCOUNTER 2022-07-16 10:47 | Outpatient (CLI) | payer MEDICAID ==
[~2022-07-16 10:47] MED LIST changes: -NAPR-1166 PO; +OLAN5TAB5 PO; -OMEP40CA21 PO; -PROP40TA7 PO; +PROP40TA72 PO; -QUET-1 PO; -TIZA-205 PO; +citalopram
[2022-07-16 11:48] LABS: HEMOGLOBIN A1C 6.6 % (4.5-6.2)
[2022-07-16 12:02] LABS: ALANINE AMINOTRANSFERASE 257 U/L (12-78); ALBUMIN 3.7 G/DL (3.4-5.0); ALBUMIN/GLOBULIN RATIO 0.9 (1.1-1.5); ALKALINE PHOSPHATASE 85 IU/L (46-116); ANION GAP 12 (8-16); ASPARTATE AMINO TRANSFERASE 229 U/L (10-37); BILIRUBIN,TOTAL 0.5 MG/DL (0.1-1.0); BLOOD UREA NITROGEN 14 MG/DL (7-18); BUN/CREATININE RATIO 16.7 (5.4-32.0); CALCIUM 8.9 MG/DL (8.5-10.1); CHLORIDE 102 MMOL/L (99-107); CHOL/HDL RATIO 4.1 (0.00-4.99); CHOLESTEROL 181 MG/DL (0-200); CREATININE 0.84 MG/DL (0.60-1.10); GLUCOSE 109 MG/DL (70-104); HDL CHOLESTEROL 44 MG/DL (35-60); LDL CHOLESTEROL 117 MG/DL (50-100); SODIUM 136 MMOL/L (135-145); TOTAL CARBON DIOXIDE 22.1 MMOL/L (24-32); TOTAL PROTEIN 7.7 G/DL (6.4-8.2); TRIGLYCERIDES 128 MG/DL (20-135); VALPROATE 64 UG/ML (50-100); eGFR > 90 ML/MIN
[2022-07-16 12:09] LABS: POTASSIUM 4.3 MMOL/L (3.5-5.1)
[2022-07-16 12:13] LABS: HEMATOCRIT 46.7 % (42.0-52.0); HEMOGLOBIN 15.8 g/dl (14.0-17.9); MEAN CORPUSCULAR HEMOGLOBIN 30.5 PG (27.0-31.0); MEAN CORPUSCULAR HGB CONC 33.8 g/dL (33.0-36.5); MEAN CORPUSCULAR VOLUME 90.2 FL (78-98); RED BLOOD COUNT 5.17 X10'6 (4.70-6.10); RED CELL DISTRIBUTION WIDTH 13.7 % (11.5-14.5)
[2022-07-16 13:24] LABS: WHITE BLOOD COUNT 6.8 X10'3 (4.5-11.0)
[2022-07-16 13:28] LABS: GIANT PLATELET FEW; LARGE PLATELETS MODERATE; PLATELET ESTIMATE NORMAL; TOTAL CELLS COUNTED 100
== END 2022-07-16 23:59 | disposition home or self-care (01) ==
LOC: LAB 10:47
PROVIDERS: ATTEND Psychiatry & Neurology Psychiatry
DX: Z79.899 Other long term (current) drug therapy (principal); T43 Poisoning by, adverse effect of and underdosing of psychotropic drugs, not elsewhere classified
CPT/HCPCS: 36415; 80053; 80061; 80164; 83036; 84146; 84439; 84443; 85007; 85025

== ENCOUNTER 2022-09-04 11:19 | Emergency (ER) | payer MEDICAID ==
[~2022-09-04] VITALS: Ht 195.6 cm; Wt 290.0 kg
[2022-09-04 12:04] LABS: BASOPHILS # (AUTO) 0.1 X10'3 (0-0.2); BASOPHILS % (AUTO) 0.8 % (0-1); EOSINOPHILS # (AUTO) 0.1 X10'3 (0-0.9); EOSINOPHILS % (AUTO) 1.7 % (0-6); HEMATOCRIT 47.7 % (42.0-52.0); HEMOGLOBIN 16.4 g/dl (14.0-17.9); LYMPHOCYTES # (AUTO) 1.5 X10'3 (1.1-4.8); LYMPHOCYTES % (AUTO) 21.7 % (21-51); MEAN CORPUSCULAR HEMOGLOBIN 30.9 PG (27.0-31.0); MEAN CORPUSCULAR HGB CONC 34.4 g/dL (33.0-36.5); MEAN CORPUSCULAR VOLUME 89.8 FL (78-98); MEAN PLATELET VOLUME 9.9 FL (7.4-10.4); MONOCYTES # (AUTO) 0.7 X10'3 (0-0.9); MONOCYTES % (AUTO) 9.8 % (2-12); NEUTROPHILS # (AUTO) 4.5 X10'3 (1.8-7.7); PLATELET COUNT 240 X10'3 (140-440); RED BLOOD COUNT 5.31 X10'6 (4.70-6.10); RED CELL DISTRIBUTION WIDTH 13.4 % (11.5-14.5); WHITE BLOOD COUNT 6.9 X10'3 (4.5-11.0)
--- NOTE | 2022-09-04 12:16 | NUR ---
pt difficult IV start - attempting access now via ultrasound
[2022-09-04 12:22] LABS: ALANINE AMINOTRANSFERASE 98 U/L (12-78); ALKALINE PHOSPHATASE 103 IU/L (46-116); ANION GAP 10 (8-16); ASPARTATE AMINO TRANSFERASE 46 U/L (10-37); BILIRUBIN,TOTAL 0.5 MG/DL (0.1-1.0); BLOOD UREA NITROGEN 19 MG/DL (7-18); CALCIUM 9.4 MG/DL (8.5-10.1); CHLORIDE 96 MMOL/L (99-107); CREATININE 1.12 MG/DL (0.60-1.10); POTASSIUM 5.2 MMOL/L (3.5-5.1); SODIUM 131 MMOL/L (135-145); TOTAL CARBON DIOXIDE 25.1 MMOL/L (24-32); TOTAL PROTEIN 8.2 G/DL (6.4-8.2); eGFR 76 ML/MIN
[2022-09-04 12:30] LABS: GLUCOSE 584 MG/DL (70-104)
[2022-09-04 12:52] LABS: CLARITY,URINE SLIGHTLY CLOUDY (Clear); COLOR,URINE YELLOW (Yellow); GLUCOSE, URINE >=1000 mg/dl (Neg); KETONES,URINE TRACE mg/dl (Neg); LEUKOCYTE ESTERASE ,URINE NEGATIVE (Neg); NITRITES, URINE NEGATIVE (Neg); OCCULT BLOOD,URINE NEGATIVE (Neg); PH,URINE 5.5 (4.8-8.0); PROTEIN,URINE NEGATIVE (Neg); UROBILINOGEN,URINE 0.2 E.U/dL (0.2-1.0)
[2022-09-04 12:54] LABS: UA COLLECTION TYPE VOIDED
[2022-09-04 12:57] LABS: SQUAMOUS EPITHELIAL CELL,UR MANY /LPF (FEW)
[2022-09-04 12:59] LABS: BACTERIA,URINE FEW /HPF (Neg); RBC,URINE 0-2 /HPF (0-2); WBC,URINE 0-4 /HPF (0-4)
[2022-09-04] MEDS ORDERED: normal saline 1000ML IV soln IVB ONE (13:15)
[2022-09-04] MEDS ORDERED: insulin Lispro (HumaLOG) vial - multi-dose SQ STA (13:47)
--- NOTE | 2022-09-04 14:19 | NUR ---
FATHER AT BEDSIDE - IV FLUIDS HAVE INFUSED. BLOOD SUGAR DOWN TO 380'S - AWAITING INSULIN FROM PHARMACY AND THEN WILL ADMIN
[2022-09-04 16:36] VITALS: BP 136/104
== END 2022-09-04 16:37 | disposition home or self-care (01) ==
LOC: ER 11:20
DX: E11.65 Type 2 diabetes mellitus with hyperglycemia (principal); E87.5 Hyperkalemia; F41.9 Anxiety disorder, unspecified; F31.9 Bipolar disorder, unspecified; F20.9 Schizophrenia, unspecified; Z88.8 Allergy status to other drugs, medicaments and biological substances; Z79.899 Other long term (current) drug therapy
CPT/HCPCS: 36415; 80053; 81001; 82948; 85025; 96360; 96372; 99283; J1815; J7030

== ENCOUNTER 2022-09-08 15:30 | Outpatient (CLI) | payer MEDICAID ==
[2022-09-08 16:39] LABS: % IRON SATURATION 16 % (11-46); IRON 54 UG/DL (53-167); TOTAL IRON BINDING CAPACITY 335 UG/DL (259-388)
[2022-09-08 16:42] LABS: ALANINE AMINOTRANSFERASE 123 U/L (12-78); ALBUMIN 3.5 G/DL (3.4-5.0); ALBUMIN/GLOBULIN RATIO 0.9 (1.1-1.5); ALKALINE PHOSPHATASE 85 IU/L (46-116); ANION GAP 10 (8-16); ASPARTATE AMINO TRANSFERASE 86 U/L (10-37); BILIRUBIN,DIRECT 0.1 MG/DL (0-0.3); BILIRUBIN,TOTAL 0.3 MG/DL (0.1-1.0); BLOOD UREA NITROGEN 14 MG/DL (7-18); BUN/CREATININE RATIO 18.9 (10.0-20.0); CHLORIDE 101 MMOL/L (99-107); CREATININE 0.74 MG/DL (0.60-1.10); GLUCOSE 333 MG/DL (70-104); SODIUM 134 MMOL/L (135-145); TOTAL CARBON DIOXIDE 22.6 MMOL/L (24-32); TOTAL PROTEIN 7.3 G/DL (6.4-8.2); eGFR > 90 ML/MIN
[2022-09-10 09:30] LABS: C-PEPTIDE, SERUM 4.5 ng/mL (1.1-4.4)
[2022-09-10 14:56] LABS: HBSAG SCREEN Negative (Negative); HEP A AB, IGM Negative (Negative); HEPATITIS C VIRUS ANTIBODY Non Reactive (Non Reactive)
== END 2022-09-08 23:59 | disposition home or self-care (01) ==
LOC: LAB 15:30
PROVIDERS: ATTEND Family Medicine
DX: Z01.89 Encounter for other specified special examinations (principal); E11.65 Type 2 diabetes mellitus with hyperglycemia; R74.8 Abnormal levels of other serum enzymes
CPT/HCPCS: 36415; 80053; 80074; 82248; 83540; 83550; 84681

== ENCOUNTER 2022-12-23 07:59 | Outpatient (CLI) | payer MEDICAID ==
[2022-12-23 09:05] LABS: EOSINOPHILS # (AUTO) 0.2 X10'3 (0-0.9); MEAN PLATELET VOLUME 9.7 FL (7.4-10.4); MONOCYTES # (AUTO) 0.6 X10'3 (0-0.9); WHITE BLOOD COUNT 7.4 X10'3 (4.5-11.0)
[2022-12-23 09:07] LABS: BASOPHILS % (AUTO) 0.6 % (0-1); EOSINOPHILS % (AUTO) 2.2 % (0-6); HEMATOCRIT 48.1 % (42.0-52.0); HEMOGLOBIN 16.3 g/dl (14.0-17.9); LYMPHOCYTES # (AUTO) 1.4 X10'3 (1.1-4.8); LYMPHOCYTES % (AUTO) 19.7 % (21-51); MEAN CORPUSCULAR HEMOGLOBIN 29.9 PG (27.0-31.0); MEAN CORPUSCULAR HGB CONC 33.9 g/dL (33.0-36.5); MEAN CORPUSCULAR VOLUME 88.1 FL (78-98); NEUTROPHILS # (AUTO) 5.1 X10'3 (1.8-7.7); NEUTROPHILS % (AUTO) 69.5 % (42-75); PLATELET COUNT 202 X10'3 (140-440); RED BLOOD COUNT 5.45 X10'6 (4.70-6.10); RED CELL DISTRIBUTION WIDTH 13.8 % (11.5-14.5)
[2022-12-23 09:27] LABS: ALANINE AMINOTRANSFERASE 65 U/L (12-78); ALBUMIN 4.1 G/DL (3.4-5.0); ALBUMIN/GLOBULIN RATIO 1.1 (1.1-1.5); ALKALINE PHOSPHATASE 78 IU/L (46-116); ANION GAP 8 (8-16); ASPARTATE AMINO TRANSFERASE 31 U/L (10-37); BILIRUBIN,TOTAL 0.4 MG/DL (0.1-1.0); BLOOD UREA NITROGEN 12 MG/DL (7-18); BUN/CREATININE RATIO 12.6 (10.0-20.0); CALCIUM 9.1 MG/DL (8.5-10.1); CHLORIDE 104 MMOL/L (99-107); CHOL/HDL RATIO 4.3 (0.00-4.99); CHOLESTEROL 141 MG/DL (0-200); CREATININE 0.95 MG/DL (0.60-1.10); GLUCOSE 104 MG/DL (70-104); HDL CHOLESTEROL 33 MG/DL (35-60); LDL CHOLESTEROL 102 MG/DL (50-100); POTASSIUM 3.9 MMOL/L (3.5-5.1); SODIUM 136 MMOL/L (135-145); TOTAL CARBON DIOXIDE 23.8 MMOL/L (24-32); TRIGLYCERIDES 102 MG/DL (20-135); eGFR > 90 ML/MIN
[2022-12-23 09:40] LABS: HEMOGLOBIN A1C 6.2 % (4.5-6.2)
== END 2022-12-23 23:59 | disposition home or self-care (01) ==
LOC: LAB 07:59
PROVIDERS: ATTEND Psychiatry & Neurology Psychiatry
DX: Z79.899 Other long term (current) drug therapy (principal); T43 Poisoning by, adverse effect of and underdosing of psychotropic drugs, not elsewhere classified
CPT/HCPCS: 36415; 80053; 80061; 83036; 84146; 84439; 84443; 85025

== ENCOUNTER 2023-07-16 12:19 | Outpatient (CLI) | payer MEDICAID ==
[2023-07-21 05:30] LABS: HEPATITIS C VIRUS ANTIBODY Non Reactive (Non Reactive)
== END 2023-07-16 23:59 | disposition home or self-care (01) ==
LOC: LAB 12:19
PROVIDERS: ATTEND Nurse Practitioner
DX: Z11.4 Encounter for screening for human immunodeficiency virus [HIV] (principal); Z01.89 Encounter for other specified special examinations; J30.9 Allergic rhinitis, unspecified
CPT/HCPCS: 36415; 86803; 87389; 87522

== ENCOUNTER 2024-02-15 08:49 | Outpatient (CLI) | payer MEDICAID | END 2024-02-15 23:59 | disposition home or self-care (01) | LOC: RAD 08:49 | PROVIDERS: ATTEND Nurse Practitioner | DX: R09.81 Nasal congestion (principal) | CPT/HCPCS: 70486 ==

== ENCOUNTER 2024-04-01 16:10 | Outpatient (CLI) | payer MEDICAID ==
[~2024-04-01] VITALS: Ht 190.5 cm; Wt 136.1 kg
[2024-04-01 16:57] VITALS: PULSE 107; RESP 14; O2SAT 95
[2024-04-01] MEDS: albuterol 2.5 MG/3 ML nebule NEB ONE (17:08)
[2024-04-01 17:09] VITALS: PULSE 114; RESP 14
== END 2024-04-01 23:59 | disposition home or self-care (01) ==
LOC: RT 16:10
PROVIDERS: ATTEND Nurse Practitioner
DX: R06.02 Shortness of breath (principal)
CPT/HCPCS: 71046; 94060; 94760

== ENCOUNTER 2024-10-18 20:18 | Inpatient (IN) | payer MEDICAID ==
[~2024-10-18] VITALS: Ht 198.1 cm; Wt 125.0 kg
--- NOTE | 2024-10-18 21:26 | ELECTROCARDIOGRAPH REPORT ---
[facility] Test Date: 2024-10-18 Test Time: 20:23:25 Pat Name: MARK ARRIAZA Department: EMERGENCY ROOM Room: ORTHO 4009 Gender: M Tire Fixer: : 1990 Requested By: CASSANDRA ALEXANDER Order Number: [id number] Reading MD: Dr. Marcellus Pizano Measurements Intervals [place] Rate: 84 P: 0 MT: 169 QRS: 49 QRSD: 98 T: 8 QT: 399 QTc: 472 Interpretive Statements Sinus rhythm Borderline prolonged QT interval Electronically Signed On 10-22-2024 13:44:[address] Marcellus Pizano Please click the below link to view image of tracing.
--- NOTE | 2024-10-18 21:47 | RADIOLOGY REPORT ---
CHEST RADIOGRAPH Indication: SEPSIS Technique: Single frontal view of the chest was obtained Comparison: None FINDINGS: Lines and Tubes: None Lungs: No focal consolidation. Pleura: No effusion. No pneumothorax. Cardiomediastinal contours: Unremarkable Bones: No acute osseous abnormality. IMPRESSION: 1. No acute cardiopulmonary disease.
[2024-10-18 22:04] LABS: BASOPHILS % (AUTO) 0.5 % (0-1); EOSINOPHILS # (AUTO) 0.1 X10'3 (0-0.9); EOSINOPHILS % (AUTO) 1.4 % (0-6); HEMATOCRIT 37.5 % (42.0-52.0); HEMOGLOBIN 12.7 g/dl (14.0-17.9); LYMPHOCYTES # (AUTO) 1.3 X10'3 (1.1-4.8); LYMPHOCYTES % (AUTO) 17.6 % (21-51); MEAN CORPUSCULAR HEMOGLOBIN 28.8 PG (27.0-31.0); MEAN CORPUSCULAR HGB CONC 33.9 g/dL (33.0-36.5); MEAN CORPUSCULAR VOLUME 85.1 FL (78-98); MEAN PLATELET VOLUME 9.3 FL (7.4-10.4); MONOCYTES # (AUTO) 0.5 X10'3 (0-0.9); MONOCYTES % (AUTO) 6.7 % (2-12); NEUTROPHILS # (AUTO) 5.5 X10'3 (1.8-7.7); NEUTROPHILS % (AUTO) 73.8 % (42-75); PLATELET COUNT 200 X10'3 (140-440); RED BLOOD COUNT 4.41 X10'6 (4.70-6.10); RED CELL DISTRIBUTION WIDTH 13.5 % (11.5-14.5); WHITE BLOOD COUNT 7.5 X10'3 (4.5-11.0)
[2024-10-18] MEDS: normal saline 1000ML IV soln IV ONE (22:26)
[2024-10-18 22:29] LABS: ALBUMIN 3.1 G/DL (3.4-5.0); ANION GAP 14 (8-16); BLOOD UREA NITROGEN 11 MG/DL (7-18); BUN/CREATININE RATIO 10.2 (10.0-20.0); CALCIUM 7.9 MG/DL (8.5-10.1); CHLORIDE 107 MMOL/L (99-107); CREATININE 1.08 MG/DL (0.60-1.10); ETHANOL 57 MG/DL (<10); GLUCOSE 227 MG/DL (70-104); MAGNESIUM 1.7 MG/DL (1.5-2.4); POTASSIUM 3.5 MMOL/L (3.5-5.1); PRO BRAIN NATRIURETIC PEPTIDE < 30 PG/ML (0-125); SODIUM 140 MMOL/L (135-145); TOTAL CARBON DIOXIDE 18.9 MMOL/L (24-32); eCRCL 123 ML/MIN; eGFR 78 ML/MIN
--- NOTE | 2024-10-18 23:09 | Physician Documentation ---
History of Present Illness ~ Chief Complaint: Hypotension Stated Complaint: OVERDOSE Time Seen by MD: 21:23 Primary Medical Doctor: mark Mode of Arrival: EMS HPI Patient presents to the emergency room for evaluation of syncope. Per patient and family he has been having multiple syncopal episodes over the past week. No chest pain or palpitations. He is on multiple psychiatric medications. Patient had two shots of alcohol this evening along with a muscle relaxer which was usual routine. Father at bedside confirms no excessive use. He denies possibility of mixed an up his medications. Denies fevers cough cold congestion abdominal pain or dysuria. Medication Reconciliation Allergies: Coded Allergies: No Known Drug Allergies (Verified Allergy, Unknown, 02/21/22) haloperidol (Verified Adverse Reaction, Unknown, 02/21/22) made him horrible paliperidone (Verified Adverse Reaction, Unknown, 02/21/22) made him feel horrible Scheduled Citalopram Hydrobromide (Citalopram HBr), 1 TAB PO DAILY, (Reported) Gabapentin (Gabapentin ER), 1 CAP PO BID, (Reported) Iloperidone (Fanapt), 12 MG PO BID, (Reported) Mirtazapine (Mirtazapine), 15 MG PO HS, (Reported) Varenicline Tartrate (Varenicline Tartrate), 1 TAB PO BID, (Reported) Scheduled PRN Tizanidine Hcl (Zanaflex), 1 TAB PO BID PRN for low back pain, (Reported) Discontinued Medications Carbamazepine (Carbamazepine), 1 CAP PO BID, (Reported) Discontinued Reason: patient no longer taking Iloperidone (Fanapt), 1 CAP PO DAILY, (Reported) Discontinued Reason: wrong med Olanzapine* (Zyprexa Zydis Odt*), 1 TAB PO DAILY, (Reported) Discontinued Reason: completed med therapy Olanzapine* (Zyprexa Zydis Odt*), 3 TAB PO HS, (Reported) Discontinued Reason: completed med therapy Propranolol Hcl* (Inderal*), 1 TAB PO TID, (Reported) Discontinued Reason: completed med therapy Past Medical History Past Medical History: Anxiety, Bipolar, Schizophrenia Past Surgical History: noncontributory Drug Use: none Lives with: Family Lives In: Home Review of Systems ROS All review of systems negative except as per HPI Physical Exam Vital Signs: Temperature: 98.3, Source: Oral, Heart Rate: 81, Respiratory Rate: 20, BP: 101/57, Pulse Oximetry: 98, Weight: 125.000 Oxygen Flow Rate: 2.0 Physical Exam General: Patient is awake, alert, oriented x4 in no acute distress. Flat affect Head: Normocephalic and atraumatic. Eyes: Conjunctival normal. EOMI. PERRL. ENT: Mucous membranes moist. Neck: Supple, trachea is midline. Chest: Clear to auscultation bilaterally without rales, rhonchi, or wheezes. There is no accessory muscle use or retractions. Cardiac: RRR without murmurs, gallops, or rubs. Abd: Soft, nondistended, nontender, with normoactive bowel sounds. No guarding, rebound, or rigidity. Neuro: Cranial nerves II-XII grossly intact. No focal neuro deficits. Progress Results/Orders Results/Orders Orders - SUNDAY WHITE MD Culture Blood (10/18/24 21:24) Chest,Single View (10/18/24 21:33) Ct Head (10/18/24 23:00) Page Hospitalist (10/19/24 00:16) Fill Out Med Reconciliation (10/19/24 00:16) Completed Orders - SUNDAY WHITE MD Electrocardiogram (10/18/24 21:24) Cbc/Diff (10/18/24 21:24) MG (10/18/24 21:24) Urinalysis, Cult If Indicated (10/18/24 21:24) Chest,Single View (10/18/24 21:33) Normal Saline 1000ml (Sodium Chloride 10 (10/18/24 21:25) Procalcitonin (10/18/24 21:24) BMP (10/18/24 21:24) Lacticsepsis (10/18/24 21:24) Drug Screen, Urine (10/18/24 21:24) Ethanol (10/18/24 21:25) PBNP (10/18/24 21:30) Hs Troponin I W Calculations (10/18/24 21:30) Hs Troponin I W Calculations (10/18/24 23:30) Hs Troponin I W Calculations (10/19/24 00:30) Ct Head (10/18/24 23:00) Lactic,2hr (10/18/24 23:27) Hgb A1c (10/18/24 21:52) Vital Signs 10/18/24 10/18/24 10/18/24 10/18/24 20:21 20:28 21:06 21:30 Temp 98.3 Pulse 81 81 79 Resp 23 19 20 19 B/P (MAP) 104/53 101/57 (72) 96/60 (72) Pulse Ox 93 98 96 O2 Flow Rate 0 2.0 2.0 10/18/24 10/18/24 10/19/24 10/19/24 22:30 23:30 00:30 01:00 Pulse 78 78 72 70 Resp 18 18 16 17 B/P (MAP) 102/57 (72) 108/74 (85) 107/69 (82) 110/74 (86) Pulse Ox 98 95 96 97 O2 Flow Rate 2.0 2.0 2.0 2.0 Laboratory Tests Test 10/18/24 21:24 10/18/24 21:52 10/18/24 23:45 10/18/24 23:48 Procalcitonin < 0.05 White Blood Count 7.5 Red Blood Count 4.41 L Hemoglobin 12.7 L Hematocrit 37.5 L Mean Corpuscular Volume 85.1 Mean Corpuscular Hemoglobin 28.8 Mean Corpuscular Hemoglobin Concent 33.9 Red Cell Distribution Width 13.5 Platelet Count 200 Mean Platelet Volume 9.3 Neutrophils (%) (Auto) 73.8 Lymphocytes (%) (Auto) 17.6 L Monocytes (%) (Auto) 6.7 Eosinophils (%) (Auto) 1.4 Basophils (%) (Auto) 0.5 Neutrophils # (Auto) 5.5 Lymphocytes # (Auto) 1.3 Monocytes # (Auto) 0.5 Eosinophils # (Auto) 0.1 Basophils # (Auto) 0.0 CBC Comment Sodium Level 140 Potassium Level 3.5 Chloride Level 107 Carbon Dioxide Level 18.9 L Anion Gap 14 Blood Urea Nitrogen 11 Creatinine 1.08 Estimated GFR/1.73 m2 78 BUN/Creatinine Ratio 10.2 Glucose Level 227 H Hemoglobin A1c 8.1 H Lactic Acid Level 4.0 *H 3.5 H Calcium Level 7.9 L Magnesium Level 1.7 Troponin I High Sensitivity 4 4 Pro-B-Type Natriuretic Peptide < 30 Albumin 3.1 L Chemistry Comments Ethyl Alcohol Level 57 H Troponin I High Sens Percent Delta 0 Troponin I Hi Sens Absolute Change 0 Lipase 33 Microbiology Date/Time Source Procedure Growth Status 10/18/24 21:52 Blood Arm Right Blood Culture - Preliminary NO GROWTH AFTER 1 DAY Resulted Medical Decision Making Findings Patient presents to the emergency room for evaluation of multiple syncopal episodes. Differentials include but are not limited to vasovagal, cardiac arrhythmia, dehydration, medication side effect therefore emergent labs ordered. Labs reassuring. Given multiple syncopal episodes that has concern for cardiogenic syncope therefore we will admit for further investigation. Departure Admitted to Inpatient Unit: yes, to hospitalist Impression: Primary Impression: Syncope Condition: Guarded Referrals: NO PRIMARY CARE PROVIDER (PCP) Signature Scribe Signature: No scribe Attestation: The note accurately reflects work and decisions made by me.Sunday White MD 10/19/24 22:34 SUNDAY WHITE MD October 18, 2024 23:09
--- NOTE | 2024-10-18 23:54 | RADIOLOGY REPORT ---
CLINICAL HISTORY: head strike TECHNIQUE: Helical imaging carried out from skull base to vertex without intravenous contrast. This e xam was performed according to our departmental dose optimization program. Up-to-date CT equipment an d radiation dose reduction techniques are utilized as appropriate. CTDIVol: 68.44 +0.14 mGy DLP: 1222.2 mGy-cm WID: COMPARISON: CT HEAD on DOS: 06/07/19 FINDINGS: The ventricles and subarachnoid spaces are normal in size and configuration. There is no midline major ft or mass effect. The paz white matter interfaces are maintained. The basal cisterns are patent. Th ere is no evidence of acute intracranial hemorrhage or extra-axial fluid collection. The mastoid air cells and visualized paranasal sinuses are well-aerated. IMPRESSION: No acute intracranial abnormality.
[2024-10-19] VITALS (8 sets, daily range): BP systolic 124–154; BP diastolic 80–112; PULSE 70–113; RESP 14–20; TEMP 97.6–97.9; O2SAT 92–98
[2024-10-19] MEDS ORDERED: magnesium sulf-water 4G/100mL 100 ML IV PRN (01:00)
[2024-10-19] MEDS ORDERED: acetaminophen 325mg tablet PO PRN (01:00)
[2024-10-19] MEDS ORDERED: dextrose 50%-water 50ml dispensing syringe IV PRN ×3 (01:00→04:05)
[2024-10-19] MEDS ORDERED: potassium Cl 20 mEq SR tablet PO PRN ×2 (01:00)
[2024-10-19] MEDS ORDERED: haloperidol lactate 5mg/ml inj IM PRN (01:00)
[2024-10-19] MEDS ORDERED: mag hydrox/Alum hydrox/simeth 30ml oral suspension PO PRN (01:00)
[2024-10-19] MEDS ORDERED: magnesium Cl slow-release 64mg tablet PO PRN (01:00)
[2024-10-19] MEDS ORDERED: ondansetron/PF 4mg/2ml inj IV PRN (01:00)
[2024-10-19] MEDS ORDERED: potassium Cl 40MEQ/1/2NS 520ml 520 ML IV PRN (01:00)
[2024-10-19] MEDS ORDERED: haloperidol 5mg tablet PO PRN (01:00)
[2024-10-19] MEDS ORDERED: magnesium hydroxide 30ml (MOM) UD suspension PO PRN (01:00)
[2024-10-19] MEDS ORDERED: magnesium sulf-water 2g/50mL 50 ML IV PRN (01:00)
[2024-10-19] MEDS: normal saline 1000ml 1,000 ML IV SCH ×2 (01:16→08:55)
--- NOTE | 2024-10-19 01:33 | HISTORY AND PHYSICAL-Residence ---
History & Physical Providers to CC Resident Creating Document: DIANA MATOS, RES ~ History of Present Illness Primary Medical Doctor: [facility] Reason for Admit\Complaint: Syncope History of Present Illness The patient is a 34-year-old male with past medical history of multiple psychiatric disorders, diabetes, COPD, presented to the ED with syncope. The patient has been having near syncopal episodes almost 3 times a week since the past two weeks. However, yesterday night, the patient experienced a syncope. The patient got up from his bed, walked to his kitchen, had some water, tried to refill his cup again when he passed out. Patient experienced slight lightheadedness and sweating before passing out. He did not complain of dizziness, palpitations, shortness of breath. He is unsure about the duration of syncope. His dad is a Witness. He called the ambulance and he regained consciousness after they arrived. The patient says that he was confused after regaining consciousness. Patient did not hit his head, there is no tongue biting, shaking, urinary incontinence. He reported that he had lose watery diarrheal episodes almost 7 times yesterday. No complaint of fever, unusual food intake, travel history, history of similar complaints in the family. Patient denies shortness of breath, chest pain, abdominal pain, nausea, vomiting, diarrhea, constipation, burning micturition. He gets occasional palpitations. He has mild cough from COPD. He is wearing nasal cannula with 2 L oxygen. Does not use oxygen at home. The patient also had two shots of alcohol whenever before the syncopal episode. The patient is not a very good historian. Allergies: Coded Allergies: No Known Drug Allergies (Verified Allergy, Unknown, 02/21/22) haloperidol (Verified Adverse Reaction, Unknown, 02/21/22) made him horrible paliperidone (Verified Adverse Reaction, Unknown, 02/21/22) made him feel horrible Home Medications Home Medications Active Reported Zyprexa Zydis Odt* (Olanzapine) 5 Mg Tab.rapdis 3 Tab PO HS DISSOLVE TABLET ON TONGUE. [citalopram] 20 Mg DAILY Inderal* (Propranolol HCl) 40 Mg Tablet 1 Tab PO TID Zyprexa Zydis Odt* (Olanzapine) 5 Mg Tab.rapdis 1 Tab PO DAILY DISSOLVE TABLET ON TONGUE. Carbamazepine 200 Mg Cpmp.12hr 1 Cap PO BID Past Medical History Past Medical History COPD Diabetes Psychiatric issues Past Surgical History Surgical History Comment Nose surgery for swollen turbinates Past Social History Social History Comment The patient lives with his dad. Ambulates independently without assistance. Goes to [facility] for primary care, also sees a psychiatrist. Smokes about one pack of cigarettes per day. Quit one month ago. Drinks about 2-3 shots of alcohol every day. Does CBD. Denies in the other illicit drug abuse. Drug Use: None Lives with: Family Lives In: Home ROS ROS Reviewed in full. Negative except for pertinent positives in HPI. Exam Vitals: Vital Signs Date Time Temp Pulse Resp B/P (MAP) Pulse Ox O2 Delivery O2 Flow Rate FiO2 10/18/24 21:06 20 10/18/24 20:28 81 98 2.0 10/18/24 20:21 98.3 General: Adult male, lethargic, not in acute distress Head: Normocephalic with an atraumatic Eyes: Pupils- 3mm, reacting to light, conjunctiva- anicteric Nose and throat: No polyps, septum- normal, no mucosal ulcers Neck: Supple, no lymphadenopathy, no carotid bruit Respiratory: On 2 L of oxygen through nasal cannula, No use of accessory muscles of respiration, Bilateral normal vesiscular breath sounds heard. No wheeze, rhochi or creps Cardiac: S1-S2 heard, rhythm regular, no gallop/murmur Abdomen: non distended, obese, no tenderness, no organomegaly, bowel sounds - heard Extremities: no clubbing, no pedal edema, no deformities, peripheral pulses - 2+ Skin: warm and dry, no rash, no purpura Neuro: No focal deficit, gross cranial nerve exam - normal Diagnostic Data Last Recorded Lab Results: 10/18/24215110/[id number] Counseling Services Smoking & Tobacco Cessation: > 10 Minutes Advance Care Planning Advanced Care plannin - 30 Minutes Additional Plan A 34-year-old male with past medical history of diabetes, multiple psychiatric disorders, presented to the ED with an episode of syncope. He is being admitted into the hospital for further evaluation and management. Plan: Syncope Cardiogenic vs neurogenic vs polypharmacy CT head normal. EKG showed no acute abnormalities. Follow up with carotid ultrasound, echocardiogram, EEG, telemetry, orthostatic vitals. History of postictal confusion and elevated lactic acid inclining towards seizures. The patient also has remote history of seizures. Continue IV fluids at 125 mL/hour. Follow up with repeat lactic acid. Troponins within normal limits. PE ruled out with normal D-dimer. Patient also had multiple diarrheal episodes yesterday. Continue IV fluids and follow up with orthostatic vitals. The patient is also on multiple psychiatric medications. Alcohol use disorder Patient drinks about 2-3 shots of alcohol every day. Started him on moderate alcohol withdrawal protocol. Supplement with daily IV thiamine and folic acid. P.o. Ativan and IV Haldol for agitation and restlessness. Nicotine use disorder Nicotine patch 21 mg daily transdermal. Diabetes mellitus HB A1c 8.1. He is on Ozempic at home. He missed his last dose of Ozempic. Starting the patient on hyperglycemia/hypoglycemia protocol with 35 units Lantus at bedtime, 10 units Humalog with meals plus medium dose supplemental insulin protocol. Psychiatric disorders Holding tizanidine and iloperidone. Continue sertraline and gabapentin. Code Status: Full code DVT Prophylaxis: Heparin Analgesia/Sedation: Acetaminophen Lines/Tubes: PIV Nutrition: Heart healthy diet PT: Ordered Disposition: We will admit the patient into [facility]. Continue syncope workup. Continue telemetry monitoring. Follow up with repeat lactic acid. Diana Matos MD Internal Medicine Resident PGY-1 I discussed the patient with the resident and agree with the assessment and plan above. Silvana Grant MD Critical Care Date of Service: October 19, 2024 Billing Provider: SILVANA GRANT MD, SOWMYA MANJARI, [facility] October 19, 2024 01:33 SILVANA GRANT MD October 19, 2024 17:28
[2024-10-19 02:39] LABS: HEMOGLOBIN A1C 8.1 % (4.5-6.2)
[2024-10-19] MEDS: PERFLUTREN PROTEIN-A MICROSPHR (Optison) 0.22 MG/ML 3ML VIAL IV ONE (03:18)
[2024-10-19] MEDS ORDERED: ILOP6TAB2 PO (03:34)
[2024-10-19] MEDS ORDERED: TIZA-205 PO (03:34)
[2024-10-19] MEDS ORDERED: GABA300T28 PO (03:34)
[2024-10-19 03:37] LABS: D-DIMER 0.35 MG/L FEU (0-0.50); INR 1.1 INR; PROTHROMBIN TIME 10.8 SECONDS (9.0-12.0)
[2024-10-19] MEDS ORDERED: glucagon, human recombinant 1mg kit SUBCUT PRN (04:05)
[2024-10-19] MEDS ORDERED: diazepam inj 5 MG/ML inj. IV PRN (04:05)
[2024-10-19] MEDS ORDERED: DEXTROSE 15 GM of carb/4 tabs (each vial/BOTTLE has 4 tablets) PO PRN ×2 (04:05)
--- NOTE | 2024-10-19 04:48 | ELECTROCARDIOGRAPH REPORT ---
[facility] Test Date: 2024-10-19 Test Time: 04:43:41 Pat Name: MARK ARRIAZA Department: [facility] 4S Patient ID: [id number] Room: [place] [id number] B Gender: M [employer]: : 1990 Requested By: FAM MATOS Order Number: [id number] Reading MD: Dr. BELIA Malave Measurements Intervals Donovan Rate: 63 P: 19 [place]: 162 QRS: 43 QRSD: 116 T: 17 QT: 445 QTc: 456 Interpretive Statements Sinus rhythm Nonspecific intraventricular conduction delay Electronically Signed On 10-19-2024 17:18:[address] BELIA Malave Please click the below link to view image of tracing.
[2024-10-19] MEDS: INSULIN LISPRO 100 UNIT/ML INSULN.PEN MULTI-DOSE SQ SCH ×2 (07:00→09:00)
[2024-10-19] MEDS: folic acid 1mg/0.2ml inj IV SCH (08:00)
[2024-10-19] MEDS: K and/or MAG REPLACEMENT MC SCH (08:00)
[2024-10-19] MEDS: docusate sod 100mg capsule PO SCH (08:00)
[2024-10-19 08:11] LABS: BILIRUBIN,URINE NEGATIVE (Neg); CLARITY,URINE CLEAR (Clear); COLOR,URINE YELLOW (Yellow); GLUCOSE, URINE NEGATIVE (Neg); KETONES,URINE NEGATIVE (Neg); LEUKOCYTE ESTERASE ,URINE NEGATIVE (Neg); OCCULT BLOOD,URINE NEGATIVE (Neg); PROTEIN,URINE NEGATIVE (Neg); UROBILINOGEN,URINE 0.2 E.U/dL (0.2-1.0)
[2024-10-19 08:19] LABS: NITRITES, URINE NEGATIVE (Neg); UA COLLECTION TYPE CLN CATCH MIDSTREAM
[2024-10-19 08:31] LABS: URINE AMPHETAMINE SCREEN NEGATIVE (Neg); URINE BARBITUATE SCREEN NEGATIVE (Neg); URINE BENZODIAZEPINES SCREEN NEGATIVE (Neg); URINE CANNABINOID SCREEN POSITIVE (Neg); URINE COCAINE SCREEN NEGATIVE (Neg); URINE METHADONE SCREEN NEGATIVE (Neg); URINE OPIATE SCREEN NEGATIVE (Neg); URINE PHENCYCLIDINE SCREEN NEGATIVE (Neg)
[2024-10-19] MEDS: thiamine 100mg/ml 2ml inj. IV SCH (10:03)
[2024-10-19] MEDS: citalopram 20mg tablet PO SCH (10:03)
[2024-10-19] MEDS: heparin, porcine 5000 units/ml vial SQ SCH (10:04)
[2024-10-19] MEDS: gabapentin 300mg capsule PO SCH (10:04)
[2024-10-19] MEDS: nicotine 21mg patch - 24 hr TD SCH (10:05)
[2024-10-19] MEDS ORDERED: ILOP12TA2 PO (10:14)
[2024-10-19] MEDS ORDERED: VARE1TAB24 PO (10:14)
[2024-10-19] MEDS ORDERED: MIRT-87 PO (10:14)
[2024-10-19] MEDS ORDERED: CITA40TA16 PO (10:14)
--- NOTE | 2024-10-19 13:16 | VASCULAR REPORT ---
Indication: Syncope Technique: Real-time ultrasound images of the neck vessels with paz-scale, color and wave Doppler we re obtained. Comparison: None Findings: The following peak systolic velocities were recorded in cm/sec: Right internal carotid: 92 Right common carotid: 120 Right external carotid: 98 Right internal/common carotid ratio: 0.95 Left internal carotid: 92 Left common carotid: 140 Left external carotid: 100 Left internal/common carotid ratio: 0.95 Right vertebral artery: Patent with normal antegrade direction of flow. Left vertebral artery: Patent with normal antegrade direction of flow. Impression: 1. No hemodynamically significant stenosis by velocity criteria.
[2024-10-19 16:38] LABS: OCCULT BLOOD STOOL NEGATIVE (Neg)
--- NOTE | 2024-10-19 17:28 | CARDIOLOGY REPORT ---
APPROVED REPORT EXAM: Comprehensive 2D, Doppler, and color-flow Echocardiogram with saline. Patient Location: [facility] Blood Pressure: 124/80 mmHg Heart Rate: 70 bpm Indications Syncope Overdose NO PHARMACY CLINICAL COORDINATOR NO Previous ECHO 2D Dimensions LA Diam3.6 cm IVSd 0.9 (0.7-1.1cm) LVDd 4.8 cm PWd 1.0 (0.7-1.1cm) IVSs 1.2 (0.8-1.2cm) LVDs 3.7 (2.5-4.0cm) PWs 1.1 (0.8-1.2cm) LVOT Diameter 2.01 (1.8-2.4cm) LVEF(%) 47.7 (>50%) Ao Asc Diam.2.63 cm IVC 13.35 mmFS (%) 24.0 % SV 51.7 ml CO 3.6 L/min M-Mode Dimensions Left Atrium(MM) 3.91 (2.5-4.0cm) Aortic Root 3.35 (2.2-3.7cm) Aortic Cusp Exc 2.96 (1.5-2.0cm) MV EPSS 1.2 (<0.5cm) Aortic Valve AoV Peak Shoaib. 127.7 cm/s AoV VTI 24.7 cm AO Peak GR. 6.5 mmHg AO Mean GR. 4 mmHg LVOT VTI 22.93 cm LVOT Peak Shoaib. 107.4 cm/s VY(VTI)/BSA 2.93 cm2/m2 VY (VTI) 2.93 cm2 Mitral Valve MV E Velocity 93.0 cm/s MV Peak Gr. 4 mmHg MV DECEL TIME 248 ms MV A Velocity 71.0 cm/s MV PHT 80 ms E/A Ratio 1.3 MVA (PHT) 2.75 cm2 MV BTqj152.1 cm/s TDI Lateral E' P. V12.50 cm/s E/Lateral E' 7.4 Tricuspid Valve TR P. Velocity 140 cm/s RAP ESTIMATE 10 mmHg TR Peak Gr. 8 mmHg RVSP 18 mmHg LEFT VENTRICLE Normal LV size and wall thickness. Overall systolic function is normal. LVEF is 55-60%. RIGHT VENTRICLE Right ventricle is mildly dilated with normal contractility. ATRIA The left atrium size is normal. Saline study was performed with 2 IV injections of 10 ccs of agitated normal saline at rest, with cough, and with valsalva. Negative saline study for right to left flow. AORTIC VALVE Trileaflet AV appears mildly sclerotic without stenosis. No insufficiency. MITRAL VALVE Mild mitral annular calcification without stenosis. Trace regurgitation. TRICUSPID VALVE The tricuspid valve is normal in structure with trace regurgitation. PULMONIC VALVE The pulmonary valve is normal in structure with physiologic insufficiency. GREAT VESSELS The aortic root is normal in size. The ascending aorta is normal in size. The IVC is normal in size a nd collapses >50% with inspiration. PERICARDIUM Normal pericardium. No effusion. Other Information Study Quality: Adequate Conclusion Normal LV size and wall thickness. Overall systolic function is normal. LVEF is 55-60%. Right ventricle is mildly dilated with normal contractility. The left atrium size is normal. Saline study was performed with 2 IV injections of 10 ccs of agitated normal saline at rest, with cou gh, and with valsalva. Negative saline study for right to left flow. Trileaflet AV appears mildly sclerotic without stenosis. No insufficiency. Mild mitral annular calcification without stenosis. Trace regurgitation. The tricuspid valve is normal in structure with trace regurgitation. Normal pericardium. No effusion.
[2024-10-19] MEDS: acetaminophen 325mg tablet PO PRN (19:47)
[2024-10-19] MEDS: insulin glargine (Lantus) pen - multi-dose SQ SCH (21:00)
--- NOTE | 2024-10-20 05:58 | PROCEDURE NOTE ---
Procedure Note Providers to CC ~ Interpretation: [place] EEG Note # Demographics Type of EEG Read: - Routine EEG - video Patient Location: Inpatient First Name: MARK Last Name: PAGE Date of : 1990 Age: 34 Gender: Male Facility: [facility] Time of Initial Page (): 10/19/2024 09:49 Time of Return Call ([place] Time): 10/19/2024 10:19 # EEG Interpretation Start Time of EEG Read (): 10/19/2024 09:56 Stop Time of EEG Read ([place] ): 10/19/2024 10:17 Duration: 0h 21m Technical Details: - The EEG electrodes were placed using the standard International 10-20 system of electrode placement. Video and an accessory EKG lead were used during the course of this study. - This study was recorded using the [employer] EEG software Indication: - syncope # Description Photic Stimulation: Performed Hyperventilation: NOT performed Phases Captured: - awake - drowsy Symmetry: symmetric Posterior Dominant Rhythm: - present, attenuates on eye opening 10Hz Predominant Frequencies: - posterior dominant alpha (8-12 Hz) - abundant (50-89%) Superimposed Frequencies: - theta (4-7 Hz) - rare (<1%) Amplitude: normal Reactivity: yes Variability: yes Continuity: continuous EKG: NSR # Abnormalities Stimulation: - photic stimulation does NOT cause abnormalities Epileptiform Abnormalities: - NOT present Focal Slowing: no Seizure: - NOT present # Impression Impression: normal # Clinical Correlation Clinical Correlation: This is a normal EEG in the awake and drowsy state. No epileptiform discharges, focal slowing, or seizures were seen. A normal EEG does not exclude nor support the diagnosis of epilepsy. # Demographics First Name: MARK Last Name: PAGE Facility: [facility] NELI NORTON MD October 20, 2024 05:58
[2024-10-20 06:00] VITALS: BP 105/79; PULSE 79; RESP 14; TEMP 98.5; O2SAT 97
[2024-10-20 06:30] LABS: BASOPHILS # (AUTO) 0.1 X10'3 (0-0.2); BASOPHILS % (AUTO) 1.4 % (0-1); EOSINOPHILS # (AUTO) 0.2 X10'3 (0-0.9); EOSINOPHILS % (AUTO) 3.9 % (0-6); HEMATOCRIT 41.3 % (42.0-52.0); HEMOGLOBIN 14.1 g/dl (14.0-17.9); LYMPHOCYTES # (AUTO) 1.3 X10'3 (1.1-4.8); LYMPHOCYTES % (AUTO) 29.7 % (21-51); MEAN CORPUSCULAR HEMOGLOBIN 28.9 PG (27.0-31.0); MEAN PLATELET VOLUME 9.1 FL (7.4-10.4); MONOCYTES # (AUTO) 0.4 X10'3 (0-0.9); MONOCYTES % (AUTO) 8.4 % (2-12); NEUTROPHILS # (AUTO) 2.5 X10'3 (1.8-7.7); NEUTROPHILS % (AUTO) 56.6 % (42-75); PLATELET COUNT 174 X10'3 (140-440); RED BLOOD COUNT 4.86 X10'6 (4.70-6.10); RED CELL DISTRIBUTION WIDTH 13.6 % (11.5-14.5); WHITE BLOOD COUNT 4.4 X10'3 (4.5-11.0)
[2024-10-20 06:37] LABS: ALANINE AMINOTRANSFERASE 75 U/L (12-78); ALBUMIN 3.4 G/DL (3.4-5.0); ALBUMIN/GLOBULIN RATIO 1.1 (1.1-1.5); ALKALINE PHOSPHATASE 85 IU/L (46-116); ANION GAP 7 (8-16); ASPARTATE AMINO TRANSFERASE 31 U/L (10-37); BILIRUBIN,TOTAL 0.4 MG/DL (0.1-1.0); BLOOD UREA NITROGEN 6 MG/DL (7-18); BUN/CREATININE RATIO 6.9 (10.0-20.0); CALCIUM 8.3 MG/DL (8.5-10.1); CHLORIDE 105 MMOL/L (99-107); CHOL/HDL RATIO 4.2 (0.00-4.99); CHOLESTEROL 130 MG/DL (0-200); CREATININE 0.87 MG/DL (0.60-1.10); GLUCOSE 151 MG/DL (70-104); HDL CHOLESTEROL 31 MG/DL (35-60); LDL CHOLESTEROL 79 MG/DL (50-100); MAGNESIUM 2.1 MG/DL (1.5-2.4); SODIUM 138 MMOL/L (135-145); TOTAL CARBON DIOXIDE 26.2 MMOL/L (24-32); TOTAL PROTEIN 6.6 G/DL (6.4-8.2); TRIGLYCERIDES 187 MG/DL (20-135); eCRCL 153 ML/MIN; eGFR > 90 ML/MIN
[2024-10-20 08:00] VITALS: BP_SYST 128; BP_SYST 139; BP_SYST 159; BP_DIAS 77; BP_DIAS 88; BP_DIAS 91; PULSE 76; PULSE 86; PULSE 93
[2024-10-20 09:45] LABS: C DIFF ANTIGEN NEGATIVE (NEGATIVE); C DIFF SPECIMEN=DIARRHEA? ACCEPTABLE; C DIFFICILE TOXINS A&B NEGATIVE (Neg)
[2024-10-20 10:00] VITALS: BP 128/77; PULSE 76; RESP 16; TEMP 98.1; O2SAT 97
[2024-10-20] MEDS ORDERED: GABA300T28 PO (10:08)
--- NOTE | 2024-10-20 12:06 | DISCHARGE SUMMARY-Residence ---
Discharge Summary Providers to CC Resident Creating Document: NAOMIE PRASAD RES ~ Discharge Summary Admission Diagnosis: Syncope Hospital Course DATE OF ADMISSION: 10/18/2024 DATE OF DISCHARGE:10/20/2024 Discharge Diagnosis\Comment: Syncope possibly from the Polypharmacy and vaso-vagal stimulation - resolved Alcohol and Nicotine use disorder Diabetes mellitus Type I Psychiatric disorders - Schizophrenia, psychosis Operations\Procedures: EEG Consultants: Shaun Kaplan teleneurology consultation Complications: None Condition on DC: Stable Changed Medications: Gabapentin (Gabapentin ER) 300 Mg Tab.er.24h 1 CAP PO DAILY for 30 Days, #30 TAB.SR (Changed from: BID) Continued Medications: Citalopram Hydrobromide (Citalopram HBr) 40 Mg Tablet 1 TAB PO DAILY Iloperidone (Fanapt) 12 Mg Tablet 12 MG PO BID, TAB Mirtazapine (Mirtazapine) 15 Mg Tablet 15 MG PO HS Tizanidine Hcl (Zanaflex) 4 Mg Tablet 1 TAB PO BID PRN for low back pain Varenicline Tartrate (Varenicline Tartrate) 1 Mg Tablet 1 TAB PO BID Discharge Summary: A 34-year-old male with past medical history of diabetes, multiple psychiatric disorders, presented to the ED with an episode of syncope. He is being admitted into the hospital for further evaluation and management. Hospital Course: Patient was admitted to the hospital floor with the concern of syncope for further investigation and management plan. His CT head was normal, EKG showed no acute abnormalities, bilateral carotid doppler USG showed No significant hemodinamically stenosis by velocity criteria. 2D Echo showed LVEF 55-60%, RV mild dilated, Negative saline study for right to left flow, Traace MR and TR with normal pericardium and no effusion. Normal chest x ray on admission. He has a history of postictal confusion and elevated lactic acid inclining towards seizures and remote history of seizures. Tele neurology consultation was requested and no provoke seizure with light stimulation during the neuro exam and the pt had EEG showed normal EEG with no abnormal Seizure like epileptiform result but could not ruled out the diagnosis of EEG with one time spot EEG normal test. he was given IV fluids at 125 mL/hour as pt came in with the previous recent history of diarrhea. Followed up with repeat lactic acid showed normal with 1.6. Troponins within normal limits. PE ruled out with normal D- dimer. We started him on moderate alcohol withdrawal protocol as patient drinks about 2-3 shots of alcohol every day with Supplement with daily IV thiamine and folic acid and P.o. Ativan and IV Haldol for agitation and restlessness. Nicotine patch 21 mg daily transdermal was ordered. His HB A1c 8.1 on Ozempic at home.We gave him 35 units Lantus at bedtime, 10 units Humalog with meals plus medium dose supplemental insulin protocol. We held tizanidine and iloperidone but continued sertraline and gabapentin which was downgraded to 300 mg Daily. All of his home meds were reviewed and reconciled properly and continued appropriately. All of his questions and concerns were addressed with the best knowledge of our team before he was discharged. All of the vitals were stable at that moment. All of his labs were reviewed and WNL with WBC 4.4, Na 138, K 4, Cr 0.87, RBS 145, TSH was high with 4.94 and TG was high with 187. On exam, Adult male, lethargic, not in acute distress Head: Normocephalic with an atraumatic Eyes: Pupils- 3mm, reacting to light, conjunctiva- anicteric Nose and throat: No polyps, septum- normal, no mucosal ulcers Neck: Supple, no lymphadenopathy, no carotid bruit Respiratory: On 2 L of oxygen through nasal cannula, No use of accessory muscles of respiration, Bilateral normal vesiscular breath sounds heard. No wheeze, rhochi or creps Cardiac: S1-S2 heard, rhythm regular, no gallop/murmur Abdomen: non distended, obese, no tenderness, no organomegaly, bowel sounds - heard Extremities: no clubbing, no pedal edema, no deformities, peripheral pulses - 2+ Skin: warm and dry, no rash, no purpura Neuro: No focal deficit, gross cranial nerve exam - normal Discharge instructions: - return to the ER for any emergency situation including repetative progressive passing out which was associated with weakness in the limbs, etc -follow up with PCP and Psychiatric for further management including Labs - CBC CMP recheck in 1-2 weeks after discharged. Needs to consult with PCP for TSH elevation. -he needs to recouncil and review to modify his current med list with PCP and Psych to prevent the furture syncope -optimal hydration and exercises are important Resident MD attestation: Patient was seen, examined and discussed with attending MD, Dr. Lele PRASAD MD Internal Medicine Resident, PGY2 [facility] *Problems/Diagnosis: (1) Schizophrenia Status: Chronic (2) Syncope Status: Resolved Total Time Spent on D/C: > 30 Minutes Date of Service: October 20, 2024 Billing Provider: CURT ALCAZAR MD Common Visit Codes: 36744-JFR/OBS DISCH DAY >30min NAOMIE PRASAD RES October 20, 2024 12:06 CURT ALCAZAR MD October 20, 2024 18:25
[2024-10-21] MEDS ORDERED: LORazepam 1 MG tablet PO PRN (01:00)
[2024-10-23] MEDS ORDERED: LORazepam 1 MG tablet PO PRN (01:00)
[2024-10-23] MEDS ORDERED: folic acid 1mg tablet PO SCH (08:00)
[2024-10-23] MEDS ORDERED: thiamine 100mg tablet PO SCH (08:00)
== END 2024-10-20 14:50 | disposition home or self-care (01) | DRG 204 ==
LOC: ER 20:18 → ED HOLD 10-19 01:03 → UNDOADMIN 10-19 01:03 → ED HOLD 10-19 01:19 → ORTHO 4S 10-19 03:57
PROVIDERS: ADMIT Internal Medicine Pulmonary Disease; ATTEND Internal Medicine
PROC: 05HC33Z Insertion of Infusion Device into Left Basilic Vein, Percutaneous Approach (ICD-10-PCS; 2024-10-19)
PROC: B54NZZA Ultrasonography of Left Upper Extremity Veins, Guidance (ICD-10-PCS; 2024-10-19)
PROC: 4A00X4Z Measurement of Central Nervous Electrical Activity, External Approach (ICD-10-PCS; principal; 2024-10-20)
DX: R55 Syncope and collapse (principal); F29 Unspecified psychosis not due to a substance or known physiological condition; E10.9 Type 1 diabetes mellitus without complications; F10.90 Alcohol use, unspecified, uncomplicated; F20.9 Schizophrenia, unspecified; F41.9 Anxiety disorder, unspecified; F31.9 Bipolar disorder, unspecified; F17.210 Nicotine dependence, cigarettes, uncomplicated; J44.9 Chronic obstructive pulmonary disease, unspecified; T50.995A Adverse effect of other drugs, medicaments and biological substances, initial encounter; Y92.89 Other specified places as the place of occurrence of the external cause; Z79.899 Other long term (current) drug therapy; Z88.8 Allergy status to other drugs, medicaments and biological substances
CPT/HCPCS: 36410; 36415; 70450; 71045; 76937; 80048; 80053; 80061; 80305; 80320; 81003; 82272; 82948; 83036; 83605; 83690; 83735; 83880; 84145; 84443; 84484; 85025; 85379; 85610; 87040; 87045; 87046; 87081; 87324; 87449; 93005; 93306; 93880; 95816; 99285; A4615; C1751; G0378; J1644; J1815; J3411; J3490; J7030

== ENCOUNTER 2025-01-02 08:58 | Outpatient (CLI) | payer MEDICAID ==
[~2025-01-02 08:58] MED LIST changes: -CARB200C7 PO; +CITA40TA16 PO; +GABA300T28 PO; +ILOP12TA2 PO; +MIRT-87 PO; -OLAN5TAB5 PO; -PROP40TA72 PO; +TIZA-205 PO; +VARE1TAB24 PO; -citalopram
[2025-01-02 10:04] LABS: RED CELL DISTRIBUTION WIDTH 14.7 % (11.5-14.5)
[2025-01-02 10:06] LABS: MEAN PLATELET VOLUME 9.2 FL (7.4-10.4)
[2025-01-02 10:21] LABS: CHOL/HDL RATIO 4.3 (0.00-4.99); CREATININE 0.89 MG/DL (0.60-1.10); LDL CHOLESTEROL 102 MG/DL (50-100); TOTAL CARBON DIOXIDE 24.8 MMOL/L (24-32); eGFR > 90 ML/MIN
== END 2025-01-02 23:59 | disposition home or self-care (01) ==
LOC: RAD 08:58
PROVIDERS: ATTEND Nurse Practitioner
DX: E11.69 Type 2 diabetes mellitus with other specified complication (principal)
CPT/HCPCS: 36415; 80053; 80061; 83036; 84439; 84443; 85025